=== PATIENT | female | born 1950 | race Caucasian/White ===

== ENCOUNTER 2016-10-15 17:53 | Emergency (ER) | payer OTHER ==
[2016-10-15 18:11] VITALS: TEMP 98.1
--- NOTE | 2016-10-15 19:55 | EDPHY ---
HPI/HX/ROS/PE/MDM Narrative: CHIEF COMPLAINT: Right lower extremity swelling HPI: The patient is a 66-year-old female with history of Parkinson's disease who presents with acute right lower extremity swelling. Patient states she falls often due to Parkinson's. Last night she fell on her kitchen floor. She went to see her PCP today who noticed increased swelling to her right lower extremity. Patient was sent here to rule out DVT. She denies chest pain or shortness of breath. No fever or chills. REVIEW OF SYSTEMS: Aside from elements discussed in the HPI, a comprehensive 10-point review of systems was reviewed and is negative. PMH: Parkinson's disease SOCIAL HISTORY: Here with long term care phlebotomist. PHYSICAL EXAM: General: Patient is alert, in no acute distress. ENT: Eyes are normal to inspection. ENT inspection normal. Neck: Normal inspection. Full range of motion. Respiratory: No respiratory distress. Breath sounds normal bilaterally. Cardiovascular: Regular rate and rhythm. Strong peripheral pulses. Abdomen: The abdomen is nontender to palpation. There are no peritoneal signs. There are normal bowel sounds. Back: Normal to inspection. No tenderness to palpation. Skin: Normal color. No rash. Warm and dry. Extremities: 1+ pitting edema on the left, 2+ pitting edema on the right. Full range of motion. Neuro: Oriented x3. Normal motor function. Normal sensory function. ED Course: Patient with Parkinson's and history of multiple falls presents with acute right lower extremity swelling. Patient has 2+ pitting edema on the right and 1 + pitting edema on the left. US is negative for DVT. MDM: This patient was sent to the ED to rule out a DVT. Thankfully the US is negative. There are no signs of cellulitis on exam. The etiology of her swelling is unclear but I think she is safe for outpatient workup. - Data Points Imaging Results: Imaging Impressions Extremity Venous Study 10/15/16 18:52 Impression: No deep venous thrombosis right leg. Findings and recommendations discussed with Emergency Department physician, Fidel Vasques MD at 19:36 hour, 10/15/2016. Final report concurs with initial preliminary interpretation. Imaging: Discussed imaging studies w/ orthopedically impaired teacher Radiologist General Time Seen by Provider: 10/15/16 18:52 Initial Vital Signs: Initial Vital Signs Temperature (C) 36.7 C 10/15/16 18:00 Heart Rate 68 10/15/16 18:00 Respiratory Rate 18 10/15/16 18:00 Blood Pressure 127/59 H 10/15/16 18:00 O2 Sat (%) 97 10/15/16 18:00 O2 Delivery Mode Room Air Allergies/Adverse Reactions: azithromycin Allergy (Verified 10/15/16 18:07) nitrofurantoin macrocrystalline [From Macrodantin] Allergy (Verified 10/15/16 18 :07) Sulfa (Sulfonamide Antibiotics) Allergy (Verified 10/15/16 18:07) Home Medications: Medication Instructions Recorded Azilect 07/15/15 Carbidopa-Levodopa 25-100 Tab 07/15/15 Citalopram 07/15/15 Levothyroxine 07/15/15 Departure - Departure Disposition: Home, Routine, Self-Care Clinical Impression: Right leg swelling Condition: Good Instructions: Leg Edema (ED) Additional Instructions: I recommend compression socks to help with the swelling. Followup with your primary care physician as needed. Return to the Emergency Department with increased swelling or pain to the leg or if you develop chest pain or shortness of breath. Referrals: Yodit Joyce MD [Primary Care Provider] - As per Instructions Report Scribed for: Fidel Vasques Report Scribed by: Christy Escoto Date of Report: 10/15/16 Time of Report: 19:55 Physician Review and Approval Statement: Portions of this note were transcribed by a medical radiation dosimetrist. I personally performed the history, physical exam, and medical decision-making; and confirmed the accuracy of the information in the transcribed note.
[2016-10-15 20:13] VITALS: BP 119/65; PULSE 67; RESP 16; O2SAT 96
== END 2016-10-15 20:13 | disposition home or self-care (01) ==
DX: M79.89 Other specified soft tissue disorders (principal); G20 Parkinson's disease

== ENCOUNTER 2016-11-01 20:03 | Emergency (ER) | payer OTHER ==
[2016-11-01 20:13] VITALS: TEMP 98.1
--- NOTE | 2016-11-01 20:50 | EDPHY ---
H & P Stated Complaint: pt pcp told pt she has elevated ddimer and to be evaled, swelling RLE Time Seen by Provider: 11/01/16 20:45 - Medical/Surgical History Hx Asthma: No Hx Chronic Respiratory Disease: No Hx Diabetes: No Hx Cardiac Disease: No Hx Renal Disease: No Hx Cirrhosis: No Hx Alcoholism: No Hx HIV/AIDS: No Hx Splenectomy or Spleen Trauma: No Other PMH: Parkinson's, hypothyroid - Social History Smoking Status: Never smoked Constitutional: Initial Vital Signs Temperature (C) 36.7 C 11/01/16 20:10 Heart Rate 71 11/01/16 20:10 Blood Pressure 131/62 H 11/01/16 20:10 O2 Sat (%) 95 11/01/16 20:10 O2 Delivery Mode Room Air Allergies/Adverse Reactions: azithromycin Allergy (Verified 11/01/16 20:14) erythromycin base Allergy (Verified 11/01/16 20:14) nitrofurantoin macrocrystalline [From Macrodantin] Allergy (Verified 11/01/16 20 :14) Sulfa (Sulfonamide Antibiotics) Allergy (Verified 11/01/16 20:14) Home Medications: Medication Instructions Recorded Carbidopa-Levodopa 25-100 Tab 07/15/15 Citalopram 07/15/15 Levothyroxine 07/15/15 FLUDROCORTISONE ACETATE 11/01/16 MIRTAZAPINE 11/01/16 Midodrine HCl 11/01/16 Medical Decision Making - Diagnostics Imaging Results: Imaging Impressions Extremity Venous Study 11/01/16 20:49 Impression: There is no sonographic evidence of deep or superficial vein thrombosis in the right lower extremity. Findings were discussed with Gamal Leigh MD at 21:30, on 11/01/2016. Imaging: Discussed imaging studies w/ physically impaired teacher Radiologist ED Course/Re-evaluation: CHIEF COMPLAINT: Right leg swelling HISTORY OF PRESENT ILLNESS: The patient is a 66 y/o female arriving at the referral of his PCP complaining of right lower leg swelling onset over the last few days. Her PCP ran a d-dimer that came back positive so she was referred here for an ultrasound. The patient denies any pain, shortness of breath, chest pain, or other complaints. She does note she falls frequently. REVIEW OF SYSTEMS: A 10 point review of systems was performed and is negative with the exception of the elements mentioned in the history of present illness. PHYSICAL EXAM: HR, BP, O2 Sat, RR. Temp noted General Appearance: Alert, well hydrated, appropriate, and non-toxic appearing. Head: Atraumatic without scalp tenderness or obvious injury Eyes: Pupils equal, round, reactive to light and accommodation, EOMI, no trauma , no injection. Nose: Atraumatic, no rhinorrhea, clear. Throat: Mucus membranes moist. Neck: Supple, non-tender, no lymphadenopathy. Respiratory: No retractions, no distress, no wheezes, and no accessory muscle use. Lungs are clear to auscultation bilaterally. Cardiovascular: Regular rate and rhythm, no murmurs, rubs, or gallops. Right dorsalis pedis pulse intact. Good capillary refill all extremities. Gastrointestinal: Abdomen is soft, non-tender, non-distended, no masses, no rebound, no guarding, no peritoneal signs. Musculoskeletal: Swelling and increased calf circumference in right lower leg. Normal active ROM of all extremities, atraumatic. Neurological: Alert, appropriate, and interactive. Nonfocal neuro exam. Skin: No rashes, good turgor, no nodules on palpation. PAST MEDICAL HISTORY: frequent falls, Parkinson's PAST SURGICAL HISTORY: Denies SOCIAL HISTORY: PCP: Dr. Joyce DIAGNOSTICS/PROCEDURES/CRITICAL CARE TIME: Right leg US: no DVT DIFFERENTIAL DIAGNOSIS: The differential diagnosis for the patient's leg swelling included but was not limited to hypoalbuminemia, congestive heart failure, cor pulmonale, venous stasis, trauma, and DVT. MEDICAL DECISION MAKING: This is a 66 y/o female who presents with a few-day history of right lower leg swelling. She had an elevated d-dimer recorded by her PCP today and was sent here for US. Her right calf circumference is increased relative to her left, but is non-tender. She has no other complaints and her exam is otherwise unremarkable. Reassessed patient and discussed imaging findings. US is negative for DVT. I've advised her to follow up with her PCP as needed for unimproved symptoms. Return precautions given. She is comfortable with this plan. Departure - Departure Disposition: Home, Routine, Self-Care Clinical Impression: Right leg swelling Condition: Good Instructions: Leg Edema (ED) Additional Instructions: Follow up with your primary care provider for unimproved symptoms over the next 2-3 days. Return to the ED for chest pain, shortness of breath, fever, or other worsening of condition. Referrals: Patient,NotPresent [Unknown] - As per Instructions Yodit Joyce MD [Primary Care Provider] - As per Instructions Report Scribed for: Gamal Leigh Report Scribed by: Zeny Cee Date of Report: 11/01/16 Time of Report: 20:51
[2016-11-01 21:43] VITALS: BP 124/61; PULSE 67; RESP 18; O2SAT 94
== END 2016-11-01 21:41 | disposition home or self-care (01) ==
LOC: EDUNIT#
DX: M79.89 Other specified soft tissue disorders (principal); G20 Parkinson's disease

== ENCOUNTER 2016-11-20 07:09 | Emergency (ER) | payer OTHER ==
--- NOTE | 2016-11-20 07:16 | EDPHY ---
H & P Stated Complaint: Mechanical Fall Time Seen by Provider: 11/20/16 07:10 HPI/ROS: CHIEF COMPLAINT: Fall HISTORY OF PRESENT ILLNESS: The patient is a 66-year-old female from but [facility] care home with Parkinson's who comes to the emergency department after she fell this morning. She has a small bruise to the right temporal region of her head. She denies headache or neck pain. She denies loss of consciousness. She does have a history of frequent falls. She also come pains of very slight right-sided rib pain with palpation. No difficulty breathing. No chest pain. No abdominal pain. She does not take blood thinners. No pain in her extremities. REVIEW OF SYSTEMS: Constitutional: denies: chills, fever, recent illness, recent injury EENTM: denies: blurred vision, double vision, nose congestion Respiratory: denies: cough, shortness of breath Cardiac: denies: chest pain, irregular heart rate, lightheadedness, palpitations Gastrointestinal/Abdominal: denies: abdominal pain, diarrhea, nausea, vomiting, blood streaked stools Genitourinary: denies: dysuria, frequency, hematuria, pain Musculoskeletal: denies: joint pain, muscle pain Skin: denies: lesions, rash, jaundice, bruising Neurological: See HPI Hematologic/Lymphatic: denies: blood clots, easy bleeding, easy bruising Immunologic/allergic: denies: HIV/AIDS, transplant EXAM: GENERAL: Well-appearing, well-nourished and in no acute distress. HEAD: Very slight bruising to left uatsdin region. No crepitus or deformity or swelling. normocephalic. EYES: Pupils equal round and reactive to light, extraocular movements intact, sclera anicteric, conjunctiva are normal. ENT: TMs normal, nares patent, oropharynx clear without exudates. Moist mucous membranes. NECK: Normal range of motion, supple without lymphadenopathy or JVD. LUNGS: Very slight pain with palpation to right lower ribcage anteriorly. No crepitus or deformity. Breath sounds clear to auscultation bilaterally and equal. No wheezes rales or rhonchi. HEART: Regular rate and rhythm without murmurs, rubs or gallops. ABDOMEN: Soft, nontender, normoactive bowel sounds. No guarding, no rebound. No masses appreciated. BACK: No CVA tenderness, no spinal tenderness, step-offs or deformities EXTREMITIES: Normal range of motion, no pitting or edema. No clubbing or cyanosis. NEUROLOGICAL: Cranial nerves II through XII grossly intact. Slightly slurred and quite speech at baseline. 5/5 strength, normal movement in all extremities , normal sensation PSYCH: Normal mood, normal affect. SKIN: Warm, dry, normal turgor, no visible rashes or lesions. Source: Patient Exam Limitations: No limitations - Medical/Surgical History Hx Asthma: No Hx Chronic Respiratory Disease: No Hx Diabetes: No Hx Cardiac Disease: No Hx Renal Disease: No Hx Cirrhosis: No Hx Alcoholism: No Hx HIV/AIDS: No Hx Splenectomy or Spleen Trauma: No Other PMH: Parkinson's, hypothyroid - Family History Significant Family History: No pertinent family hx - Social History Smoking Status: Never smoked Alcohol Use: Sober Drug Use: None Constitutional: Initial Vital Signs Temperature (C) 37.2 C 11/20/16 07:13 Heart Rate 72 11/20/16 07:13 Respiratory Rate 18 11/20/16 07:13 Blood Pressure 100/48 L 11/20/16 07:13 O2 Sat (%) 94 11/20/16 07:13 O2 Delivery Mode Room Air Allergies/Adverse Reactions: azithromycin Allergy (Verified 11/20/16 07:12) erythromycin base Allergy (Verified 11/20/16 07:12) nitrofurantoin macrocrystalline [From Macrodantin] Allergy (Verified 11/20/16 07 :12) Sulfa (Sulfonamide Antibiotics) Allergy (Verified 11/20/16 07:12) Home Medications: Medication Instructions Recorded Carbidopa-Levodopa 25-100 Tab 07/15/15 Citalopram 07/15/15 Levothyroxine 07/15/15 FLUDROCORTISONE ACETATE 11/01/16 MIRTAZAPINE 11/01/16 Midodrine HCl 11/01/16 Medical Decision Making - Diagnostics Imaging Results: Imaging Impressions Head CT 11/20/16 07:13 Impression: No acute posttraumatic abnormality identified. Results were communicated to IONA THAKUR, at 11/20/2016 8:02 General information for patients regarding this examination can be found at [email or web address]. If you have questions or comments about this report, please contact me at [phone] (hospital) or [phone] ([facility]). Ribs w/Chest X-Ray 11/20/16 07:13 Impression: Mildly displaced fracture of the right lateral 10th rib. Cortical regularity along the right lateral ninth rib may also represent a fracture. No pneumothorax. Imaging: Discussed imaging studies w/ dye range operator Radiologist ED Course/Re-evaluation: 8:15 a.m. we discussed the CT and x-ray results. The patient is reassured. She is writing on her phone. She declines further workup or testing at this time and is eager to go home. We discussed rib fractures and healing. Differential Diagnosis: Partial list of the Differential diagnosis considered include but were not limited to; contusion, fracture, Pneumothorax, head injury and although unlikely based on the history and physical exam, I also considered neck injury, infection, assault. I discussed these differential diagnoses and the plan with the patient as well as the usual and expected course. The patient understands that the diagnosis is provisional and that in medicine we are not always correct and that further workup is often warranted. Usual and customary warnings were given. All of the patient's questions were answered. The patient was instructed to return to the emergency department should the symptoms at all worsen or return, otherwise to followup with the physician as we discussed. Departure - Departure Disposition: Home, Routine, Self-Care Clinical Impression: Right rib fracture Qualifiers: Encounter type: initial encounter Rib fracture type: single rib Fracture type: closed Qualified Code(s): S22.31XA - Fracture of one rib, right side, initial encounter for closed fracture Contusion Qualifiers: Encounter type: initial encounter Contusion area: head Contusion of head detail : orbital tissues Laterality: right Qualified Code(s): S05.11XA - Contusion of eyeball and orbital tissues, right eye, initial encounter Condition: Fair Instructions: Rib Fracture (ED) Referrals: Yodit Joyce MD [Primary Care Provider] - As per Instructions
[2016-11-20 08:15] VITALS: RESP 16
[2016-11-20 09:09] VITALS: BP 104/82; PULSE 76; TEMP 96.8; O2SAT 95
== END 2016-11-20 09:09 | disposition home or self-care (01) ==
LOC: EDUNIT#
DX: S22.31XA Fracture of one rib, right side, initial encounter for closed fracture (principal); S05.11XA Contusion of eyeball and orbital tissues, right eye, initial encounter; G20 Parkinson's disease; W18.30XA Fall on same level, unspecified, initial encounter

== ENCOUNTER 2017-03-04 16:43 | Inpatient (IN) | payer OTHER ==
[2017-03-04] MEDS ORDERED: ACETAMINOPHEN 500 MG TAB PO ONE (16:55)
--- NOTE | 2017-03-04 16:57 | EDPHY ---
H & P Time Seen by Provider: 03/04/17 16:46 HPI/ROS: CHIEF COMPLAINT: Right hip injury HISTORY OF PRESENT ILLNESS: Patient arrives by EMS with her son. She has a history of multiple falls. She fell earlier today and hit her head on a piece of furniture. She was able to walk back to her room but then she could not get up because her right hip was hurting. Right lateral hip pain, worse with trying to move it or stand on it. Does not radiate. Not associated with weakness or numbness in the foot or knee or ankle symptoms. Started about an hour prior to arrival. REVIEW OF SYSTEMS: Eye: no change in vision ENT: no sore throat Cardiac: no chest pain or syncope Pulmonary: no cough or SOB Abdomen: no vomiting, diarrhea, abdominal pain Musculoskeletal: No neck or back pain. Skin: no rash Neuro: Mild headache where she hit her head Constitutional: no fever : no urinary symptoms A comprehensive 10 point review of systems is otherwise negative aside from elements mentioned in the history of present illness. PAST MEDICAL HISTORY: Includes thyroid and Parkinson's. Social history: Here with her son, lives at [facility] General Appearance: Alert and conversant, cooperative. Eyes: No scleral icterus. ENT, Mouth: Normal mucous membranes. Respiratory: Normal respiratory effort, breath sounds equal, lungs are clear to auscultation. Cardiovascular: Regular rate and rhythm. Gastrointestinal: Abdomen is soft and non tender. Neurological: Alert and oriented x3. Normally conversant. Face symmetric, can move both feet and has normal sensation in both feet. Skin: Abrasion on the right flank. Musculoskeletal: Does have some lateral tenderness over her greater trochanter but no hip pain with rotation or axial loading. No distal femur knee catheterization ankle or foot tenderness. Normal motor sensory and dorsalis pedis in the right foot. No cervical thoracic or lumbar spine tenderness. No upper extremity or left lower extremity tenderness or decrease in range of motion of joints. Patient does not have knee tenderness on the right side. Full range of motion of both knees. Psychiatric: Not agitated. Emergency Department course/MDM: Head CT scanning for head trauma in a 58-year-old woman, x-rays to include right hip and femur. 1741: X-rays right hip and femur interpreted personally is negative. 1818: Negative CT head and cervical spine per Dr. Rios. Results discussed with the son, patient can't walk or stand, needs to be admitted to the hospital. 2040: X-ray report reviewed, in the ED clinical exam does not fit with patellar fracture, will be followed clinically the hospital by hospitalist. Smoking Status: Never smoked Constitutional: Initial Vital Signs Temperature (C) 37.1 C 03/04/17 16:49 Heart Rate 88 03/04/17 16:49 Respiratory Rate 18 03/04/17 16:49 Blood Pressure 168/77 H 03/04/17 16:49 O2 Sat (%) 94 03/04/17 16:49 O2 Delivery Mode Room Air Allergies/Adverse Reactions: azithromycin Allergy (Verified 11/20/16 07:12) entacapone Allergy (Verified 03/04/17 16:53) erythromycin base Allergy (Verified 11/20/16 07:12) nitrofurantoin macrocrystalline [From Macrodantin] Allergy (Verified 11/20/16 07 :12) Sulfa (Sulfonamide Antibiotics) Allergy (Verified 11/20/16 07:12) Home Medications: Medication Instructions Recorded Aspirin EC [Aspirin EC 81 mg (*)] 81 mg PO DAILY 03/04/17 Carbidopa/Levodopa [Rytary ER 1 cap PO Q4H 03/04/17 48.75 mg-195 mg Cap] Citalopram [CeleXA] 20 mg PO DAILY 03/04/17 FLUDROCORTISONE ACETATE 0.1 mg PO BID@08,14 03/04/17 Herbals/Supplements -Info Only 1 ea PO DAILY 03/04/17 Levothyroxine [Synthroid 75 mcg 75 mcg PO DAILY06 03/04/17 (*)] Mirtazapine [Mirtazapine] 15 mg PO HS 03/04/17 Sennosides/Docusate Sodium 1 each PO BID 03/04/17 [Senna-Docusate Sodium Tablet] Medical Decision Making - Diagnostics Imaging Results: Imaging Impressions Cervical Spine CT 03/04/17 16:54 Impression: Normal. CT Scan of Cervical Spine (Without Contrast) Clinical Indications: Pain after trauma. Technique: Multidetector helical CT of the cervical spine was performed using dose reduction technology. Axial, sagittal, and coronal images were reviewed. Findings: No fractures are found. No dislocation. Intervertebral disks are degenerated at multiple levels, worst at C5-C6, where severe bulging disk and osteophytes cause stenosis of the spinal canal. Facet joints are degenerated at multiple levels. Impression: 1. Degenerative spinal stenosis at C5-C6. 2. No acute traumatic sequelae. I telephoned results to Dr. Mian Sinha at [address] 03/04/17 16:54 Impression: Normal. CT Scan of Cervical Spine (Without Contrast) Clinical Indications: Pain after trauma. Technique: Multidetector helical CT of the cervical spine was performed using dose reduction technology. Axial, sagittal, and coronal images were reviewed. Findings: No fractures are found. No dislocation. Intervertebral disks are degenerated at multiple levels, worst at C5-C6, where severe bulging disk and osteophytes cause stenosis of the spinal canal. Facet joints are degenerated at multiple levels. Impression: 1. Degenerative spinal stenosis at C5-C6. 2. No acute traumatic sequelae. I telephoned results to Dr. Mian Sinha at 1812 hours. Hip X-Ray 03/04/17 16:54 Impression: 1. Query small right hip joint effusion. 2. 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 3. Significant L4-L5 degenerative lumbar disk disease. Femur X-Ray 03/04/17 16:55 Impression: 1. Probable nondisplaced patellar fracture. 2. Moderate degenerative change in the knee with a joint effusion. Differential Diagnosis: Differential considered including but not limited to pelvic fracture, hip dislocation, hip fracture, femoral shaft fracture. Consult/Admit Bed Type: [place] [id number] sent text re; knee xray at 4 - Data Points Medications Given: Discontinued Medications Acetaminophen (Tylenol) 1,000 mg PO EDNOW ONE Stop: 03/04/17 16:56 Last Admin: 03/04/17 16:58 Dose: 1,000 mg Departure - Departure Disposition: [facility] Inpatient Acute Clinical Impression: Contusion of right hip Qualifiers: Encounter type: initial encounter Qualified Code(s): S70.01XA - Contusion of right hip, initial encounter Condition: Good
[2017-03-04] MEDS ORDERED: ACETAMINOPHEN 500 MG TAB ONE (16:59)
[2017-03-04] MEDS ORDERED: ONDANSETRON DISINTEGRATING 4 MG TAB PO PRN (21:07)
[2017-03-04] MEDS ORDERED: oxyCODONE IR 5 MG TAB PO PRN (21:07)
[2017-03-04] MEDS: ACETAMINOPHEN 500 MG TAB PO SCH (21:41)
[2017-03-04] MEDS: SENNOSIDES/DOCUSATE SODIUM TAB PO SCH (21:42)
[2017-03-04] MEDS: MIRTAZAPINE 15 MG TAB PO SCH (21:42)
--- NOTE | 2017-03-04 22:32 | GHP ---
[f rep st] HISTORY AND PHYSICAL DATE OF ADMISSION: 03/04/2017 CHIEF COMPLAINT: Multiple falls. HISTORY OF PRESENT ILLNESS: This is a 66-year-old female with a history of Parkinson's as well as mu lti-system atrophy, who has multiple falls. She is brought in today by her son after she fell and la nded on her right hip. Her hip has been quite painful since. She has been able to bear weight on it . She has some right knee swelling, which has been there chronic and unchanged. She does not have a ny significant pain in the right knee. Her son is involved, and was with her in the emergency depart ment, though he was not with her when I saw her. She has had multiple, almost countless falls recent ly. PAST MEDICAL/PAST SURGICAL HISTORY: 1. Parkinson's. 2. Multi-system atrophy. 3. Thyroid disease. MEDICATIONS: Please see medication reconciliation. SOCIAL HISTORY: She lives at [place]. Her son is involved in her care. FAMILY HISTORY: Reviewed and noncontributory. REVIEW OF SYSTEMS: 10-point review of systems is conducted, and is negative except per HPI. PHYSICAL EXAMINATION: VITAL SIGNS: Blood pressure 120/64, heart rate 63, respiration rate 16, satur ating 96% on room air. Temperature is 36.5. GENERAL: Ms. Gray is a very pleasant, elderly female who is resting in bed. Appears comfortable, in no acute distress. HEENT: Shows to be normocephali c, atraumatic. CARDIOVASCULAR: Exam shows a regular rate and rhythm. No murmurs, rubs, or gallops. PULMONARY: Lungs clear to auscultation bilaterally. ABDOMEN: Soft, nontender, nondistended. EXT REMITIES: Her right hip is mobile with mild tenderness to palpation over the right greater trochante r. Her right knee has an effusion. She is able to move this. SKIN: No rash. : No Bauman. NEUR OLOGIC: Exam shows her to be alert and oriented x3. She is moving all extremities. She has a nonfo noah neurologic exam. PSYCHIATRIC: Exam shows a normal mood and affect. LABS: Her recent labs are reviewed from October. She had a hemoglobin of 10.9. Her basic metabolic pa paty is normal. She did not have labs drawn in the emergency department. DATA: 1. I discussed this with Dr. Mckee. Recommends 3-view knee x-rays. 2. Femur x-ray shows questionable patellar fracture. Shows moderate degenerative disease. Hip x-ra y shows no fracture. 3. Head CT is normal. 4. CT scan of the C-spine shows degenerative changes. IMPRESSION AND PLAN: A 66-year-old female with Parkinson's and multiple falls. 1. Multiple falls: I think that these are due to Parkinson's and multi-system atrophy. There is co ncern that her current level of care is not sufficient; I briefly discussed this with her. We will h ave Physical Therapy and Occupational Therapy work with her. Case Management will need to be involve d. 2. Question of right patellar fracture: Does not really fit with her clinical picture. She does gilman ve an effusion. I spoke with Dr. Mckee, who recommends a formal 3-view x-ray of her knee. If she is ambulating without worsening pain, he thinks that a brace may be placed for comfort only, though take care with this, given her history of multiple falls. He will not formally consult at this point. I f there is any concern on the 3 view of her knee, he can be reached for further input as needed. 3. Parkinson's/multi-system atrophy: Will continue her Sinemet. 4. Hypothyroid: Continue her Synthroid. 5. Code status is do not resuscitate. 6. Venous thromboembolism risk is high. Given her immobility, I will give her Lovenox. /[id number]/MODL
[2017-03-05] MEDS: LEVOTHYROXINE 75 MCG TAB PO SCH (05:39)
[2017-03-05 05:55] LABS: % IMMATURE GRANULYOCYTES 0.2 % (0.0-1.1); ABSOLUTE IMMATURE GRANULOCYTES 0.01 10^3/uL (0.00-0.10); ADD DIFF? NO; ADD MORPH? NO; ADD SCAN? NO; ATYPICAL LYMPHOCYTE FLAG 0 (0-99); FRAGMENT RBC FLAG 0 (0-99); HEMATOCRIT 34.4 % (38.0-47.0); HEMOGLOBIN 12.3 g/dL (12.6-16.3); LEFT SHIFT FLG 0 (0-99); LIPEMIA HEMOLYSIS FLAG 90 (0-99); MEAN CELL HEMOGLOBIN 33.2 pg (27.9-34.1); MEAN CELL HEMOGLOBIN CONCENTR. 35.8 g/dL (32.4-36.7); MEAN CELL VOLUME 92.7 fL (81.5-99.8); MEAN PLATELET VOLUME 9.8 fL (8.7-11.7); PLATELET CLUMPS FLAG 0 (0-99); PLATELET COUNT 162 10^3/uL (150-400); RED BLOOD CELL COUNT 3.71 10^6/uL (4.18-5.33); RED CELL DISTRIBUTION WIDTH 13.7 % (11.5-15.2)
[2017-03-05 06:12] LABS: ANION GAP 10 mEq/L (8-16); CALCIUM 9.2 mg/dL (8.5-10.4); CARBON DIOXIDE 31 mEq/l (22-31); CHLORIDE 104 mEq/L (97-110); CREATININE 0.6 mg/dL (0.6-1.0); GLOMERULAR FILTRATION RATE > 60; GLUCOSE 86 mg/dL (70-100); POTASSIUM 3.3 mEq/L (3.5-5.2); SODIUM 145 mEq/L (134-144)
[2017-03-05] MEDS: SENNOSIDES/DOCUSATE SODIUM TAB PO SCH ×2 (09:10→22:19)
[2017-03-05] MEDS: ENOXAPARIN 40 MG/0.4 ML SYR SC SCH (09:10)
[2017-03-05] MEDS: ACETAMINOPHEN 500 MG TAB PO SCH ×3 (09:10→22:19)
[2017-03-05] MEDS: FLUDROCORTISONE ACETATE 0.1 MG TAB PO SCH ×2 (09:10→14:28)
[2017-03-05] MEDS: ASPIRIN EC 81 MG TAB PO SCH (09:10)
[2017-03-05] MEDS: CITALOPRAM 20 MG TAB PO SCH (09:11)
--- NOTE | 2017-03-05 12:16 | PDMN ---
Medical Necessity Medical necessity: est los>2mn for multiple falls r/t Parkinson's and multi- system atrophy, R hip pain, r/o R patellar fx, concern re: living situation is appropriate level of care; requires PT/OT, eval for need for R knee brace, safe dispo at d/c; per order and H&P 03/04/17
--- NOTE | 2017-03-05 12:50 | HOSPPROG ---
Hospitalist Progress Note Assessment/Plan: Patient is a 66-year-old female with a history of Parkinson's as well as multi- system atrophy. She has a history of multiple falls. She was brought in by her son after she fell landed on her right hip. She has been unable to bear weight on it. Today is my 1st encounter with the patient. Chart reviewed. * frequent falling with underlying Parkinson's and multi-system atrophy -there is concern she does not have enough care. -physical therapy and occupational therapy seeing her, recommending home care -she very much wants to return home * right knee effusion with severe patella femoral arthritis -the x-ray does not confirm a right patellar fracture * Parkinson's -Sinemet * hypothyroidism -Synthroid *hypokalemia -add K protocol *Hypernatremia -mild *Plan: will see how she is doing tomorrow; if continues to be able to ambulate at her baseline, will dc her back to her [place]. Subjective: Tayler has no c/o pain. Would very much like to return to her home. Objective: Vital Signs Temp Pulse Resp BP Pulse Ox 37.1 C 59 L 16 105/51 L 95 03/05/17 07:28 03/05/17 11:35 03/05/17 11:35 03/05/17 11:35 03/05/17 11:35 Laboratory Results 03/05/17 05:11 03/05/17 05:11 03/04/17 03/05/17 03/06/17 05:59 05:59 05:59 Intake Total 200 Balance 200 - Physical Exam Constitutional: not in pain, chronically ill appearing Eyes: PERRL Ears, Nose, Mouth, Throat: hearing normal Cardiovascular: regular rate and rhythym Respiratory: no respiratory distress Gastrointestinal: normoactive bowel sounds Skin: warm Musculoskeletal: generalized weakness Neurologic: AAOx3 Psychiatric: interacting appropriately ICD10 Worksheet Patient Problems: Problems Problem Status Onset Contusion of right hip Acute
[2017-03-05] MEDS ORDERED: PROTOCOL POTASSIUM 1 DOSE MISC PRN (14:28)
--- NOTE | 2017-03-05 15:29 | ASMTCMCOM ---
CM Note CM Note Notes: Pt with Parkinsons had fall at [place], falls regularly. PT/OT rec H[facility], pt agreeable and wants to return home. Pt [facility] with [facility] in [facility] past, she [facility] and they accept for OT/PT. Pt currently open with [facility] delac[facility], has PCP Dr. Joyce and neurology at [facility]. Pt likely d/c tomorrow. CM to follow. Date Signed: 03/05/2017 03:29 PM Electronically Signed By:RYAN Whitney
[2017-03-05 18:49] LABS: POTASSIUM 3.3 mEq/L (3.5-5.2)
[2017-03-05] MEDS ORDERED: POTASSIUM CL 10 MEQ TAB PO ONE (21:18)
[2017-03-05] MEDS: MIRTAZAPINE 15 MG TAB PO SCH (22:19)
[2017-03-06 03:37] VITALS: TEMP 97.7
[2017-03-06 06:21] LABS: ANION GAP 10 mEq/L (8-16); CALCIUM 9.4 mg/dL (8.5-10.4); CARBON DIOXIDE 30 mEq/l (22-31); CHLORIDE 107 mEq/L (97-110); CREATININE 0.7 mg/dL (0.6-1.0); GLOMERULAR FILTRATION RATE > 60; GLUCOSE 88 mg/dL (70-100); POTASSIUM 3.5 mEq/L (3.5-5.2); SODIUM 147 mEq/L (134-144)
[2017-03-06] MEDS: LEVOTHYROXINE 75 MCG TAB PO SCH ×2 (06:43→09:20)
[2017-03-06] MEDS ORDERED: POTASSIUM CL 10 MEQ TAB PO ONE (06:44)
[2017-03-06 07:45] VITALS: BP 139/71; PULSE 67; RESP 14; O2SAT 93
[2017-03-06] MEDS ORDERED: POTASSIUM CL 10 MEQ TAB ONE (09:34)
[2017-03-06] MEDS: ACETAMINOPHEN 500 MG TAB PO SCH (10:29)
[2017-03-06] MEDS: CITALOPRAM 20 MG TAB PO SCH (10:29)
[2017-03-06] MEDS: ASPIRIN EC 81 MG TAB PO SCH (10:29)
[2017-03-06] MEDS: FLUDROCORTISONE ACETATE 0.1 MG TAB PO SCH (10:30)
[2017-03-06] MEDS: SENNOSIDES/DOCUSATE SODIUM TAB PO SCH (11:42)
[2017-03-06] MEDS: ENOXAPARIN 40 MG/0.4 ML SYR SC SCH (11:42)
[2017-03-06] MEDS ORDERED: MIDODRINE HCL 5 MG TAB PO PRN (11:46)
--- NOTE | 2017-03-06 11:50 | HOSPPROG ---
Hospitalist Progress Note Assessment/Plan: Patient is a 66-year-old female with a history of Parkinson's as well as multi- system atrophy. She has a history of multiple falls. She was brought in by her son after she fell landed on her right hip. She has been unable to bear weight on it. * frequent falling with underlying Parkinson's and multi-system atrophy -there is concern she does not have enough care. -physical therapy and occupational therapy seeing her, recommending home care -she very much wants to return home -will dc home w home care * right knee effusion with severe patella femoral arthritis -the x-ray does not confirm a right patellar fracture * Parkinson's -Sinemet * hypothyroidism -Synthroid *hypokalemia -add K protocol *Hypernatremia -mild *Plan: dc back to [place] w ongoing home care, patient ambulated well in the room with her walker Subjective: aTyler has no pain, very much wants to be discharged back to her assisted living. Objective: Vital Signs Temp Pulse Resp BP Pulse Ox 36.5 C 67 14 139/71 H 93 03/06/17 07:41 03/06/17 07:41 03/06/17 07:41 03/06/17 07:41 03/06/17 07:41 Laboratory Results 03/05/17 05:11 03/06/17 05:19 03/05/17 03/06/17 03/07/17 05:59 05:59 05:59 Intake Total 200 Balance 200 - Physical Exam Constitutional: not in pain, chronically ill appearing Eyes: PERRL, anicteric sclera Ears, Nose, Mouth, Throat: hearing normal Cardiovascular: regular rate and rhythym Respiratory: no respiratory distress Skin: warm, No normal color (pale) Musculoskeletal: generalized weakness (but does well w walker) Neurologic: AAOx3 Psychiatric: interacting appropriately, not anxious, not encephalopathic ICD10 Worksheet Patient Problems: Problems Problem Status Onset Contusion of right hip Acute
--- NOTE | 2017-03-06 11:56 | PDIAF ---
- Diagnosis Diagnosis: weakness, Parkinson's, multi system atrophy Code Status: Do Not Resuscitate - Medication Management Discharge Medications: Medications to Continue on Transfer Aspirin EC [Aspirin EC 81 mg (*)] 81 mg PO DAILY 03/04/17 [Last Taken 03/04/17] Carbidopa/Levodopa [Rytary ER 48.75 mg-195 mg Cap] 4 cap PO 08,12 03/04/17 [ Last Taken 03/04/17] Citalopram [CeleXA 20 MG] 20 mg PO DAILY 03/04/17 [Last Taken 03/04/17] FLUDROCORTISONE ACETATE 0.1 mg PO BID@08,14 03/04/17 [Last Taken 03/04/17] Herbals/Supplements -Info Only 1 ea PO DAILY 03/04/17 [Last Taken 03/04/17] Levothyroxine [Synthroid 75 mcg (*)] 75 mcg PO DAILY06 03/04/17 [Last Taken ] Mirtazapine 15 mg PO HS 03/04/17 [Last Taken 03/04/17] Sennosides/Docusate Sodium [Senna-Docusate Sodium Tablet] 1 each PO BID [Last Taken 03/04/17] Acetaminophen [Tylenol ES 500 mg (*)] 1,000 mg PO TID tab 03/06/17 [Last Taken Unknown] Carbidopa/Levodopa [Rytary ER 48.75 mg-195 mg Cap] 3 each PO 16,20 03/06/17 [ Last Taken Unknown] Midodrine HCl 5 mg PO QID PRN 03/06/17 [Last Taken 03/04/17] Discharge Medications: Refer to the Discharge Home Medication list for PRN reason. - Orders Services needed: Home Care, Physical Therapy, Occupational Therapy Home Care Face to Face: I certify that this patient was under my care and that I had the required [id number] encounter meeting the encounter requirements on the discharge day. My findings support the fact that the patient is homebound as defined in Home Care Face to Face Continued: CMS Chapter 7 Medicare Benefits Manual 30.1.1 , The condition of the patient is such that there exists a normal inability to leave home and consequently, leaving home would require a considerable and taxing effort. Diet Recommendation: no restrictions on diet Diet Texture: Regular Texture Diet - Follow Up Care Current Providers and Referrals: Patient,NotPresent [Unknown] - As per Instructions
--- NOTE | 2017-03-06 13:43 | ASMTCMCOM ---
CM Note CM Note Notes: Pt medically stable for d/c back to [place] with [facility] PT/OT. Date Signed: 03/06/2017 01:42 PM Electronically Signed By:RYAN Whitney
--- NOTE | 2017-03-06 13:48 | ASDISCHSUM ---
Discharge Information Plan Status:Home with Home Health Medically Cleared to Leave: Discharge Date:03/06/2017 01:30 PM CM D/C Disposition:Home Health Service ADT D/C Disposition:[id number] Projected Discharge Date:03/06/2017 11:00 AM Transportation at D/C: Discharge Delay Reason: Follow-Up Date:03/06/2017 11:00 AM Discharge Slot: Final Diagnosis: Placement Information Referral Type:*Home Health Care Services Referral ID:[id number] Provider Name:[facility]) Address 1:[address] [place] [address] Address 2: City:[place] Selection Factors: State:[place] Patient Contact Information Contact Name:YISSELMaximino Relationship:Son Address: Work Phone: City: [facility] Phone: [facility] Code: Email: Financial Information Financial Class: Primary Plan Desc:MEDICARE INPATIENT Primary Plan Number:[id number] Secondary Plan Desc:[facility] Secondary Plan Number:[id number] Assessment Information [facility] CM Progress Note CM Note CM Note Notes: Pt with Parkinsons had fall at [place], falls regularly. PT/OT rec HH, pt agreeable and wants to return home. Pt received services with [facility] in the past, she requests [facility] again and they accept for OT/PT. Pt currently open with [facility] delacruz, has PCP Dr. Joyce and neurology at [facility]. Pt likely d/c tomorrow. CM to follow. Date Signed: 03/05/2017 03:29 PM Electronically Signed By:RYAN Whitney [facility] CM Progress Note CM Note CM Note Notes: Pt medically stable for d/c back to [place] with [facility] PT/OT. Date Signed: 03/06/2017 01:42 PM Electronically Signed By:RYAN Whitney Intervention Information
--- NOTE | 2017-03-06 14:15 | GDS ---
[f rep st] DISCHARGE SUMMARY DISCHARGE DIAGNOSES: 1. Frequent falling with underlying Parkinson's and multi-system atrophy. 2. Right knee effusion with severe patellofemoral arthritis. 3. Parkinson. 4. Hypothyroidism. 5. Hypokalemia. 6. Hypernatremia. HISTORY OF PRESENT ILLNESS: Briefly, the patient is a very sweet 66-year-old female with a history of Parkinson's, as well as multi-system atrophy. She has a history of multiple falls. She was brought in by her son after she landed on her right hip. She had difficulty with bearing weight. Subsequently, she came to the hospital for further evaluation. On admission, she had a cervical spine CT performed which showed degenerative spinal stenosis at C5-C6. She has no acute traumatic sequelae. Head CT is normal. Femur x-ray showed a probable nondisplaced patellar fracture. She had a moderate degenerative change of the knee with a joint effusion. Because of the femur x-ray, the recommendation from Orthopedics was to get a knee x-ray that was 3-view. This showed a positive joint effusion. This showed severe patellofemoral osteoarthritis, worse in the lateral patellar femoral compartment. She had no definite fracture. She worked with Physical Therapy and Occupational Therapy. She is ambulating well. She was able to get out of bed and ambulate to the bathroom with a walker without difficulty. The patient is requesting to return to assisted living with home care. HOSPITAL COURSE: 1. Frequent falling with underlying Parkinson's and multi-system atrophy. We will resume her home care. The patient very much wants to return to her assisted living. Does not want a intermediate facility. 2. Right knee effusion with severe patellofemoral arthritis. Her pain is well managed with scheduled Tylenol. Will continue this. 3. Parkinson's. Sinemet. 4. Hypothyroidism, on Synthroid. 5. Hypokalemia, on potassium protocol. 6. Hypernatremia, mild. Suspect this was from dehydration. DISCHARGE CONDITION: Stable. Blood pressure is 139/71, heart rate is 67, respiratory rate is 14, O2 sats on room air 93%, temperature 36.5 Celsius. MEDICATIONS AT DISCHARGE: Please see the EMR. DISCHARGE INSTRUCTIONS: 1. Continue home care. 2. If she develops fever, chills, chest pain, or shortness of breath, return to the ER. Greater than 30 minutes discharging and coordinating the patient's care. /[id number]/MODL MTDD
[2017-03-06] MEDS ORDERED: LEVODOPA PO SCH (16:00)
[2017-03-06] MEDS ORDERED: CARBIDOPA PO SCH (16:00)
[2017-03-07] MEDS ORDERED: Herbals/Supplements -Info Only PO SCH (09:00)
== END 2017-03-06 13:30 | disposition home health service (06) | DRG 57 ==
LOC: EDUNIT# → F3N 20:30
PROVIDERS: ADMIT Student in an Organized Health Care Education/Training Program; ATTEND Internal Medicine
DX: G20 Parkinson's disease (principal); M17.11 Unilateral primary osteoarthritis, right knee; S70.01XA Contusion of right hip, initial encounter; W19.XXXA Unspecified fall, initial encounter; Y92.098 Other place in other non-institutional residence as the place of occurrence of the external cause; E03.9 Hypothyroidism, unspecified; E87.6 Hypokalemia; E87.0 Hyperosmolality and hypernatremia; Z91.81 History of falling; Z66 Do not resuscitate
CPT/HCPCS: 97116-GP; 97161-GP; 97166-GO; 97530-GP; G8978-GP-CJ; G8979-GP-CI; G8980-GP-CI; G8987-GO-CI; G8988-GO-CI; J1650

== ENCOUNTER → 2017-05-22 | Outpatient (CLI) | payer OTHER | PROVIDERS: ATTEND Family Medicine | DX: R13.12 Dysphagia, oropharyngeal phase (principal); G20 Parkinson's disease | CPT/HCPCS: 74230; 92611; G8996; G8997; G8998 ==

== ENCOUNTER 2017-08-09 16:39 | Inpatient (IN) | payer OTHER ==
[2017-08-09] MEDS ORDERED: IBUPROFEN SUSP 100 MG/5 ML UDCUP PO ONE (17:10)
[2017-08-09] MEDS ORDERED: NS 1,000 ML IV ONE (17:10)
--- NOTE | 2017-08-09 17:14 | EDPHY ---
H & P Stated Complaint: weak, ST, not feeling well, poor appetite, not speaking Time Seen by Provider: 08/09/17 16:50 HPI/ROS: CHIEF COMPLAINT: Fever, cough HISTORY OF PRESENT ILLNESS: 67-year-old female with advanced Parkinson's disease and multi system atrophy presents with fever and cough. Onset of sore throat, cough and fever yesterday, associated with generalized weakness. She usually uses a walker to ambulate, but is too weak to use her walker today. Decreased oral intake today. She drank a little juice, but did not eat today. No shortness of breath or chest discomfort. No prior history of pneumonia. REVIEW OF SYSTEMS: complete 10 point ROS negative except at noted in the HPI - Medical/Surgical History Hx Asthma: No Hx Chronic Respiratory Disease: No Hx Diabetes: No Hx Cardiac Disease: No Hx Renal Disease: No Hx Cirrhosis: No Hx Alcoholism: No Hx HIV/AIDS: No Hx Splenectomy or Spleen Trauma: No Other PMH: Parkinson's, hypothyroid, MSA (multiple system atrophy) - Social History Smoking Status: Never smoked - Physical Exam Exam: General Appearance: Alert, pleasant, answers yes/no questions, tries to answer other questions, but difficult to understand Eyes: Pupils equal and round, no conjunctival pallor or injection ENT, Mouth: Mucous membranes dry Neck: Normal inspection Respiratory: Lungs are clear to auscultation Cardiovascular: Regular rate and rhythm Gastrointestinal: Abdomen is soft and nontender Neurological: Alert, diffuse weakness Skin: Warm and dry Extremities: Normal inspection Psychiatric: Mood and affect normal Constitutional: Initial Vital Signs Temperature (C) 38.4 C H 08/09/17 16:44 Heart Rate 88 08/09/17 16:44 Blood Pressure 123/55 H 08/09/17 16:44 O2 Sat (%) 85 L 08/09/17 16:44 O2 Delivery Mode Nasal Cannula O2 (L/minute) 3 Allergies/Adverse Reactions: azithromycin Allergy (Verified 08/09/17 16:43) entacapone Allergy (Verified 08/09/17 16:43) erythromycin base Allergy (Verified 08/09/17 16:43) nitrofurantoin macrocrystalline [From Macrodantin] Allergy (Verified 08/09/17 16 :43) Sulfa (Sulfonamide Antibiotics) Allergy (Verified 08/09/17 16:43) Home Medications: Medication Instructions Recorded Aspirin EC [Aspirin EC 81 mg (*)] 81 mg PO DAILY 03/04/17 Carbidopa/Levodopa [Rytary ER 4 cap PO 08,12 03/04/17 48.75 mg-195 mg Cap] Citalopram [CeleXA 20 MG] 20 mg PO DAILY 03/04/17 FLUDROCORTISONE ACETATE 0.1 mg PO BID@08,14 03/04/17 Herbals/Supplements -Info Only 1 ea PO DAILY 03/04/17 Levothyroxine [Synthroid 75 mcg 75 mcg PO DAILY06 03/04/17 (*)] Mirtazapine 15 mg PO HS 03/04/17 Sennosides/Docusate Sodium 1 each PO BID 03/04/17 [Senna-Docusate Sodium Tablet] Acetaminophen [Tylenol ES 500 mg 1,000 mg PO TID tab 03/06/17 (*)] Carbidopa/Levodopa [Rytary ER 3 each PO 16,20 03/06/17 48.75 mg-195 mg Cap] Midodrine HCl 5 mg PO QID PRN 03/06/17 Medical Decision Making - Diagnostics Imaging Results: Imaging Impressions Chest X-Ray 08/09/17 16:56 Impression: 1. Bilateral patchy alveolar infiltrates suggestive of pneumonia. CHF is felt to be possible but less likely. ED Course/Re-evaluation: This patient presents with fever cough and hypoxia, concerning for pneumonia. Oxygen saturation 95% on 2 L of oxygen by nasal cannula. Ibuprofen 600 mg orally given. IV normal saline 1 L given for dehydration. Does not meet SIRS criteria. Chest x-ray reveals a left lower lobe infiltrate as well as patchy bilateral infiltrates. Blood cultures drawn and Levaquin and cefepime IV given. The hospitalist service was consulted for admission. Differential Diagnosis: Differential diagnosis includes pyelonephritis, cholecystitis, influenza, cellulitis, pneumonia, abscess, meningitis. - Data Points Laboratory Results: Laboratory Results 08/09/17 17:05 08/09/17 17:08/09/17 08/09/17 08/09/17 17:05 17:05 17:05 WBC 10.26 10^3/uL H 10^3/uL (3.80-9.50) RBC 3.58 10^6/uL L 10^6/uL (4.18-5.33) Hgb 12.0 g/dL L g/dL (12.6-16.3) Hct 34.1 % L % (38.0-47.0) MCV 95.3 fL fL (81.5-99.8) MCH 33.5 pg pg (27.9-34.1) MCHC 35.2 g/dL g/dL (32.4-36.7) RDW 12.8 % % (11.5-15.2) Plt Count 155 10^3/uL 10^3/uL (150-400) MPV 10.1 fL fL (8.7-11.7) Neut % (Auto) Not Reported Lymph % (Auto) Not Reported [place] % (Auto) Not Reported Eos % (Auto) Not Reported Baso % (Auto) Not Reported Nucleat RBC Rel Count Not Reported Absolute Neuts (auto) Not Reported Absolute Lymphs (auto) Not Reported Absolute Monos (auto) Not Reported Absolute Eos (auto) Not Reported Absolute Basos (auto) Not Reported Absolute Nucleated RBC Not Reported Immature Gran % Not Reported Seg Neutrophils % 96.0 % % Band Neutrophils % 0 % % Lymphocytes % 0 % % Monocytes % 4.0 % % Eosinophils % 0 % % Basophils % 0 % % Metamyelocytes % 0 % % Myelocytes % 0 % % Promyelocytes % 0 % % Blast Cells % 0 % % Immature Gran # Not Reported Absolute Seg Neuts 9.85 10^/uL H 10^/uL (1.70-6.50) Absolute Band Neuts 0.00 10^3/uL 10^3/uL (0.00-0.70) Absolute Lymphocytes 0.00 10^3/uL L 10^3/uL (1.00-3.00) Absolute Monocytes 0.41 10^3/uL 10^3/uL (0.30-0.80) Absolute Eosinophils 0.00 10^3/uL L 10^3/uL (0.03-0.40) Absolute Basophils 0.00 10^3/uL L 10^3/uL (0.02-0.10) Absolute Metamyelocyte 0.00 10^3/mL 10^3/mL (0.00-0.00) Absolute Myelocytes 0.00 10^3/mL 10^3/mL (0.00-0.00) Absolute Promyelocytes 0.00 10^3/uL 10^3/uL (0.00-0.00) Absolute Plasma Cells 0.00 10^3/uL 10^3/uL (0.00-0.00) RBC/WBC/PLT Morphology NORMAL (NORMAL) Absolute Blast Cells 0.00 10^3/uL 10^3/uL (0.00-0.00) Plasma Cells % 0 % % Platelet Estimate ADEQUATE (ADEQ) VBG Lactic Acid 0.8 mmol/L mmol/L (0.7-2.1) Sodium 140 mEq/L mEq/L (135-145) Potassium 3.8 mEq/L mEq/L (3.5-5.2) Chloride 102 mEq/L mEq/L (97-110) Carbon Dioxide 28 mEq/l mEq/l (22-31) Anion Gap 10 mEq/L mEq/L (8-16) BUN 18 mg/dL mg/dL (7-23) Creatinine 0.7 mg/dL mg/dL (0.6-1.0) Estimated GFR > 60 Glucose 110 mg/dL H mg/dL (70-100) Calcium 8.8 mg/dL mg/dL (8.5-10.4) Microbiology Results: MICROBIOLOGY 08/09/17 17:05 Nasal, Sinus - Swab Respiratory Panel (PCR) - Final Human Metapneumovirus Detected Medications Given: Discontinued Medications Sodium Chloride (Ns) 1,000 mls @ 0 mls/hr IV ONCE ONE; Wide Open PRN Reason: Protocol Stop: 08/09/17 17:11 Last Admin: 08/09/17 17:19 Dose: 1,000 mls Cefepime HCl 1 gm/ Sterile (Water) 11.3 mls @ 135.6 mls/hr IV EDNOW ONE PRN Reason: Protocol Stop: 08/09/17 17:58 Last Admin: 08/09/17 19:42 Dose: 11.3 mls Levofloxacin/Dextrose (Levaquin 750 Mg (Premix)) 150 mls @ 100 mls/hr IV EDNOW ONE PRN Reason: Protocol Stop: 08/09/17 19:23 Last Admin: 08/09/17 18:06 Dose: 150 mls Ibuprofen (Motrin Oral Solution) 600 mg PO EDNOW ONE Stop: 08/09/17 17:11 Last Admin: 08/09/17 17:20 Dose: 600 mg Departure - Departure Disposition: [facility] Inpatient Acute Clinical Impression: Pneumonia Qualifiers: Pneumonia type: due to unspecified organism Laterality: bilateral Lung location : unspecified part of lung Qualified Code(s): J18.9 - Pneumonia, unspecified organism Condition: Fair
[2017-08-09 17:21] LABS: PLATELET COUNT 155 10^3/uL (150-400)
[2017-08-09] MEDS ORDERED: CEFEPIME HCL 1 GM in STERILE WATER INJ 11.3 ML IV ONE (17:54)
[2017-08-09] MEDS ORDERED: ONDANSETRON DISINTEGRATING 4 MG TAB PO PRN (18:46)
[2017-08-09] MEDS ORDERED: ONDANSETRON 4 MG/2 ML VIAL IVP PRN (18:46)
[2017-08-09] MEDS ORDERED: ACETAMINOPHEN 325 MG TAB PO PRN (18:46)
--- NOTE | 2017-08-09 19:36 | GHP ---
[f rep st] HISTORY AND PHYSICAL DATE OF ADMISSION: 08/09/2017 HISTORY OF PRESENT ILLNESS: The patient is a pleasant, 67-year-old female with a history of Parkinson's and multi-system atrophy, who presents with fever and lethargy. She had a sore throat, cough, and fever yesterday and today she had generalized weakness. She was too weak to walk using a wheelchair. She had decreased oral intake. She gets ongoing speech therapy, and she had a recent video swallow in May of this year showing silent aspiration with thin liquids. When I speak with her, she is able to speak. She is alert, but her speech is weak and short, and she does not have normal speech at baseline. She notes that she feels weak and acknowledges coughing with eating. She has had poor p.o. intake. REVIEW OF SYSTEMS: Complete 10-point review of systems conducted and negative except as noted in the HPI. PAST MEDICAL HISTORY: 1. Parkinsonism. 2. Multisystem atrophy. 3. Thyroid disease. 4. Autonomic dysfunction. SOCIAL HISTORY: She lives in [place]. No tobacco. No alcohol. Originally from [place]. ALLERGIES: Entacapone, azithromycin, erythromycin, nitrofurantoin, and sulfa. MEDICATIONS: Aspirin, carbidopa/levodopa, citalopram, fludrocortisone acetate 0.1 mg oral, levothyroxine, midodrine, mirtazapine, senna docusate. PHYSICAL EXAMINATION: VITAL SIGNS: Temperature 38.4, blood pressure 123/55; pulse 88, now 77; breathing 85% on room air, now 98% on 3 L. GENERAL: Thin, alert. HEENT: Sclerae are anicteric. Oropharynx is clear. Mucous membranes are dry. NECK: Supple without lymphadenopathy or JVD. LUNGS: Show diffuse crackles throughout bilaterally, more predominant in the lower lobe. HEART: S1 , S2. Not tachycardic. ABDOMEN: Soft, nontender, nondistended. LOWER EXTREMITIES: Without no edema. Calves are nontender. SKIN: Without rash. NEUROLOGIC: Nonfocal. It is noted for the patient slow to respond and rigid movements, but otherwise nonfocal. IMAGING STUDIES: Chest x-ray interpreted by co shows multifocal infiltrates that are bilateral. LABORATORY DATA: White count is 10, which is elevated for her. Hematocrit 34, which is baseline. Platelets are 155. Venous lactate is 0.8. Sodium 140, potassium 3.8, chloride 102, BUN 18, creatinine 0.7, glucose 110. BUN is a little bit higher than normal. I have discussed the case with Dr. Kamala Lui. ASSESSMENT AND PLAN: This is a 67-year-old female with multi-system atrophy, here with pneumonia. 1. Pneumonia. This is likely aspiration pneumonia, given her known dysphagia. She is also at risk for nosocomial organisms, given her recent hospitalization within 6 months, as well as living in an assisted living facility. We will start her on cefepime and Flagyl. I think we can forego atypical coverage. We will have Speech Therapy see her. 2. Known aspiration. For now make her n.p.o. except for medications and have Speech Therapy see her. 3. Sepsis. The patient screens positive for sepsis with leukocytosis, fever, source of infection. She has a normal lactate, which she has received in an intravenous fluid bolus in the emergency department. I will continue maintenance intravenous fluids. She is not hypotensive. 4. Multi-system atrophy. Physical Therapy, Occupational Therapy, Speech Pathology, and continue her Florinef and midodrine. 5. Parkinson's. Continue her carbidopa/levodopa. 6. Prophylaxis. Low molecular heparin indicated. 7. Code. I discussed the case with her son. It sounds like she may be a do not resuscitate, but he was unsure, and he is not the power of bottom worker, so for now she will be full code, but this is worth following up on the 5th. DISPOSITION: Inpatient status. /[id number]/MODL MTDD
--- NOTE | 2017-08-09 20:01 | PDMN ---
Medical Necessity Medical necessity: C/M review: est. > 2 MN LOS for eval and TX of acute pneumonia, likely aspiration pneumonia, sepsis, known aspiration, requiring ongoing NPO except for meds, IV Cefepime, IV Flagyl, IV fluids, pulse oximetry, supplemental o2, acute inpt PT/OT/ST, comorbid known dysphagia, multi-system atrophy, parkibnson's disease,history of thyroid disease and autonomic dysfunction per H/P.
[2017-08-09] MEDS: NS 1,000 ML IV SCH (21:29)
[2017-08-10] MEDS: CEFEPIME HCL 1 GM in STERILE WATER INJ 11.3 ML IV SCH ×3 (02:20→18:19)
[2017-08-10 05:52] LABS: PLATELET COUNT 136 10^3/uL (150-400)
[2017-08-10] MEDS: ENOXAPARIN 40 MG/0.4 ML SYR SC SCH (09:42)
--- NOTE | 2017-08-10 12:03 | ASMTCMCOM ---
CM Note CM Note Notes: Pt admitted with pneumonia, likely aspiration. Pt has a hx of parkinsons, dysphagia, multisystem atrophy & falls. Normally resides at [facility]. Called [facility] ([phone]); confirmed pt is an assisted living resident. Pt has had [facility] the past & is current with [facility]. Pt's sons Ray ([phone]) & Franklyn ([phone]) live locally. PT ordered; awaiting eval. OT/ST recommending SNF. CM will follow. Date Signed: 08/10/2017 12:02 PM Electronically Signed By:Dahiana Lezama RN
--- NOTE | 2017-08-10 12:29 | HOSPPROG ---
Hospitalist Progress Note Assessment/Plan: 67-year-old female history of Parkinson's and severe atrophy presents with complaints of weakness and fever. 1st encounter, chart reviewed. # bilateral pneumonia -likely secondary to aspiration -high risk for nosocomial organisms -continue cefepime and Flagyl # dysphagia -acute on chronic -speech therapy eval today -patient will likely benefit from tube feeding -reviewed with Dr. Salgado of Gastroenterology -will consider Dobhoff in the acute infectious setting -will likely need a PEG tube long-term # human metapneumovirus -precautions -continue supportive care # sepsis -resolved # Parkinson's is multi system atrophy -continue therapies -patient very deconditioned -dietary and calorie count # disposition -unclear at this time -continue in-hospital supportive care -consider tube feeding Subjective: Feels very tired and weak. Not hungry. No pain. Objective: Vital Signs Temp Pulse Resp BP Pulse Ox 37.1 C 89 20 142/71 H 95 08/10/17 11:44 08/10/17 11:44 08/10/17 11:44 08/10/17 11:44 08/10/17 11:44 Laboratory Results 08/10/17 04:35 08/10/17 04:23 08/09/17 08/10/17 08/11/17 05:59 05:59 05:59 Intake Total 1200 0 Balance 1200 0 - Physical Exam Constitutional: chronically ill appearing, uncomfortable, cachectic Eyes: PERRL, anicteric sclera, EOMI Ears, Nose, Mouth, Throat: moist mucous membranes, hearing normal, ears appear normal Cardiovascular: No JVD, No tachycardia, No edema Respiratory: no respiratory distress, reduced air movement, rhonchi Gastrointestinal: No tenderness, No ascites, No distension Skin: warm, normal color, No mottled Musculoskeletal: normal joint ROM, pain with ROM, generalized weakness Neurologic: AAOx3 Psychiatric: not anxious, not encephalopathic, poor judgement, poor memory ICD10 Worksheet Patient Problems: Problems Problem Status Onset Contusion of right hip Acute Pneumonia Acute
[2017-08-10] MEDS: NS 1,000 ML IV SCH (12:57)
[2017-08-10] MEDS ORDERED: KETOCONAZOLE 2% 120 ML SHAMPOO TP PRN (18:07)
[2017-08-10] MEDS ORDERED: CARBIDOPA PO SCH (20:00)
[2017-08-10] MEDS ORDERED: LEVODOPA PO SCH (20:00)
[2017-08-10] MEDS ORDERED: NON-FORMULARY NEW DRUG (Mirtazapine [Mirtazapine] 15 MG) PO SCH (21:00)
[2017-08-10] MEDS ORDERED: MIRTAZAPINE 15 MG TAB PO SCH (21:00)
[2017-08-10] MEDS: CARBIDOPA/LEVODOPA 25 MG/100 MG TAB PO SCH (21:40)
[2017-08-10] MEDS: MIDODRINE HCL 5 MG TAB PO SCH (21:41)
[2017-08-11] MEDS: CEFEPIME HCL 1 GM in STERILE WATER INJ 11.3 ML IV SCH ×3 (02:16→17:52)
[2017-08-11] MEDS ORDERED: LEVOTHYROXINE 88 MCG TAB PO SCH (06:00)
[2017-08-11] MEDS: NS 1,000 ML IV SCH (06:07)
[2017-08-11] MEDS ORDERED: CARBIDOPA PO SCH (08:00)
[2017-08-11] MEDS ORDERED: LEVODOPA PO SCH (08:00)
[2017-08-11] MEDS: CARBIDOPA/LEVODOPA 25 MG/100 MG TAB PO SCH ×3 (08:04→17:56)
[2017-08-11] MEDS: CITALOPRAM 20 MG TAB PO SCH ×2 (08:04→17:45)
[2017-08-11] MEDS: MIDODRINE HCL 5 MG TAB PO SCH (08:05)
[2017-08-11] MEDS: ENOXAPARIN 40 MG/0.4 ML SYR SC SCH (08:14)
[2017-08-11] MEDS ORDERED: SENNOSIDES/DOCUSATE SODIUM TAB PO SCH (09:00)
[2017-08-11] MEDS ORDERED: Herbals/Supplements -Info Only PO SCH (09:00)
[2017-08-11] MEDS ORDERED: ASPIRIN EC 81 MG TAB PO SCH (09:00)
[2017-08-11] MEDS ORDERED: PANTOPRAZOLE SODIUM 40 MG TAB PO SCH (09:00)
--- NOTE | 2017-08-11 14:36 | HOSPPROG ---
Hospitalist Progress Note Assessment/Plan: 67-year-old female history of Parkinson's and severe atrophy presents with complaints of weakness and fever. # bilateral pneumonia -likely secondary to aspiration -high risk for nosocomial organisms -continue cefepime and Flagyl # dysphagia -NPO -Dobhoff to be placed -acute on chronic -speech therapy eval -reviewed with Dr. Salgado of Gastroenterology -will likely need a PEG tube long-term # human metapneumovirus -precautions -continue supportive care # sepsis -resolved # Parkinson's is multi system atrophy -continue therapies -patient very deconditioned -dietary and calorie count # disposition -unclear at this time -continue in-hospital supportive care -palliative meeting needed -D/W CM Subjective: Slept well last evening. Up in chair. No pain. Objective: Vital Signs Temp Pulse Resp BP Pulse Ox 36.8 C 70 97 H 152/72 H 1 L 08/11/17 12:42 08/11/17 12:42 08/11/17 12:42 08/11/17 12:42 08/11/17 12:42 Laboratory Results 08/10/17 04:35 08/10/17 04:23 08/10/17 08/11/17 08/12/17 05:59 05:59 05:59 Intake Total 1200 1020 Balance 1200 1020 - Physical Exam Constitutional: not in pain, chronically ill appearing, cachectic Eyes: PERRL, anicteric sclera, EOMI Ears, Nose, Mouth, Throat: moist mucous membranes, hearing normal, ears appear normal Cardiovascular: No JVD, No tachycardia, No edema Respiratory: no respiratory distress, no rales or rhonchi, clear to auscultation Gastrointestinal: normoactive bowel sounds, No tenderness, No ascites Skin: warm, normal color, No mottled Musculoskeletal: normal joint ROM, no joint effusions, generalized weakness Neurologic: AAOx3 Psychiatric: not anxious, not encephalopathic, thought process linear ICD10 Worksheet Patient Problems: Problems Problem Status Onset Contusion of right hip Acute Pneumonia Acute
[2017-08-11] MEDS ORDERED: FLUDROCORTISONE ACETATE 0.1 MG TAB PO SCH ×2 (16:00→18:07)
--- NOTE | 2017-08-11 17:09 | ASMTCMCOM ---
CM Note CM Note Notes: CM spoke with hospitalist and RN Lefty, Wes placed today, will monitor while treating pneumonia Patient is unable to speak and swallow. Plan tomorrow to discuss patient status with son, Lefty informed son Franklyn there will likely be a big conversation to have around core status, PEG tube and feeding, and Palliative vs. Hospice and reports one of pt's sons will come tomorrow (Franklyn or Ray). Discharge TBD. CM to follow. Current D/C plan: TBD. Date Signed: 08/11/2017 05:08 PM Electronically Signed By:Stephanie Colin
[2017-08-11] MEDS: FLUDROCORTISONE ACETATE 0.1 MG TAB TUBE SCH (17:51)
[2017-08-11] MEDS: ACETAMINOPHEN 325 MG TAB TUBE PRN (17:51)
[2017-08-11] MEDS: CITALOPRAM 20 MG TAB TUBE SCH (17:52)
[2017-08-11] MEDS: LANSOPRAZOLE SUSP 30MG/10ML UDSYR (Adult) TUBE SCH (17:53)
[2017-08-11] MEDS: CARBIDOPA/LEVODOPA 25 MG/100 MG TAB TUBE SCH (21:14)
[2017-08-11] MEDS: MIRTAZAPINE 15 MG TAB TUBE SCH (21:15)
[2017-08-11] MEDS: MIDODRINE HCL 5 MG TAB TUBE SCH (21:15)
[2017-08-11] MEDS: SENNOSIDES 17.6 MG/10 ML UDL - IF LIQUID ORDERED TUBE SCH (21:15)
[2017-08-12] MEDS: CEFEPIME HCL 1 GM in STERILE WATER INJ 11.3 ML IV SCH ×3 (01:48→18:30)
[2017-08-12] MEDS: LEVOTHYROXINE 88 MCG TAB TUBE SCH (05:33)
[2017-08-12] MEDS: ACETAMINOPHEN 325 MG TAB TUBE PRN ×2 (05:33→21:27)
[2017-08-12] MEDS: ASPIRIN 81 MG CHEWABLE TAB TUBE SCH (08:39)
[2017-08-12] MEDS: CARBIDOPA/LEVODOPA 25 MG/100 MG TAB TUBE SCH ×4 (08:39→21:13)
[2017-08-12] MEDS: LANSOPRAZOLE SUSP 30MG/10ML UDSYR (Adult) TUBE SCH (08:40)
[2017-08-12] MEDS: MIDODRINE HCL 5 MG TAB TUBE SCH ×2 (08:40→21:13)
[2017-08-12] MEDS: SENNOSIDES 17.6 MG/10 ML UDL - IF LIQUID ORDERED TUBE SCH ×2 (08:40→21:14)
[2017-08-12] MEDS: CITALOPRAM 20 MG TAB TUBE SCH (08:40)
[2017-08-12] MEDS: FLUDROCORTISONE ACETATE 0.1 MG TAB TUBE SCH ×2 (08:40→12:11)
--- NOTE | 2017-08-12 08:51 | HOSPPROG ---
Hospitalist Progress Note Assessment/Plan: 67-year-old female history of Parkinson's(she has underlying Multiple systems atrophy) who presented with complaints of weakness and fever. # bilateral pneumonia -likely secondary to aspiration -high risk for nosocomial organisms -continue cefepime and Flagyl # dysphagia (likely caused by progression of MSA) -NPO -Dobhoff placed -acute on chronic -speech therapy evaluation recommended a dysphagia 2 diet -will likely need a PEG tube long-term -reviewed this with her son, he wants to think about it and further discuss w his mom # human metapneumovirus -precautions -continue supportive care # sepsis -resolved # Parkinson's is multi system atrophy -continue therapies -patient very deconditioned -dietary and calorie count # disposition -unclear at this time -continue in-hospital supportive care -palliative meeting needed (I explained to her son that Tayler is likely to get recurrent pna due to aspiration-he wants to talk w his twin brother about a peg tube) Also, reviewed her [facility] status with them. Her son is somewhat sure she is a DNR but will look at her Living Will and get back to the nursing staff. Subjective: Tayler has no c/o pain, has difficulty w talking due to weakness Objective: Vital Signs Temp Pulse Resp BP Pulse Ox 37.1 C 73 20 134/66 H 94 08/12/17 04:00 08/12/17 04:00 08/12/17 04:00 08/12/17 04:00 08/12/17 04:00 Laboratory Results 08/10/17 04:35 08/10/17 04:23 08/11/17 08/12/17 08/13/17 05:59 05:59 05:59 Intake Total 1020 900 Balance 1020 900 - Physical Exam Constitutional: chronically ill appearing, other (thin) Eyes: PERRL Ears, Nose, Mouth, Throat: hearing normal Cardiovascular: regular rate and rhythym Respiratory: no respiratory distress Gastrointestinal: normoactive bowel sounds Skin: warm, No normal color (pale) Musculoskeletal: generalized weakness Neurologic: other (alert but very weak and has trouble w using her voice) Psychiatric: interacting appropriately ICD10 Worksheet Patient Problems: Problems Problem Status Onset Pneumonia Acute Contusion of right hip Acute
[2017-08-12] MEDS: ENOXAPARIN 40 MG/0.4 ML SYR SC SCH (08:59)
[2017-08-12] MEDS: NS 1,000 ML IV SCH (12:12)
--- NOTE | 2017-08-12 16:09 | ASMTCMCOM ---
CM Note CM Note Notes: Left a message for evans Gonzalez regarding patient and the need to meet to determine core status and future planning for palliative vs hospice. CM will follow. Date Signed: 08/12/2017 04:08 PM Electronically Signed By:Shalonda Merchant LCSW
[2017-08-12] MEDS: MIRTAZAPINE 15 MG TAB TUBE SCH (21:13)
[2017-08-13] MEDS: CEFEPIME HCL 1 GM in STERILE WATER INJ 11.3 ML IV SCH ×3 (01:11→18:20)
[2017-08-13] MEDS: LEVOTHYROXINE 88 MCG TAB TUBE SCH (05:06)
[2017-08-13 07:01] LABS: PLATELET COUNT 210 10^3/uL (150-400)
[2017-08-13] MEDS ORDERED: PROTOCOL POTASSIUM 1 DOSE MISC PRN (07:47)
[2017-08-13] MEDS ORDERED: POTASSIUM CL 10 MEQ TAB PO ONE (07:57)
[2017-08-13] MEDS ORDERED: POTASSIUM CL 20 MEQ/15 ML UDCUP TUBE ONE ×2 (08:15→22:15)
[2017-08-13] MEDS: ACETAMINOPHEN 325 MG TAB TUBE PRN (08:21)
[2017-08-13] MEDS: ASPIRIN 81 MG CHEWABLE TAB TUBE SCH (08:23)
[2017-08-13] MEDS: FLUDROCORTISONE ACETATE 0.1 MG TAB TUBE SCH ×2 (08:23→12:39)
[2017-08-13] MEDS: CARBIDOPA/LEVODOPA 25 MG/100 MG TAB TUBE SCH ×4 (08:23→21:24)
[2017-08-13] MEDS: MIDODRINE HCL 5 MG TAB TUBE SCH ×2 (08:24→21:25)
[2017-08-13] MEDS: CITALOPRAM 20 MG TAB TUBE SCH (08:24)
[2017-08-13] MEDS: SENNOSIDES 17.6 MG/10 ML UDL - IF LIQUID ORDERED TUBE SCH ×2 (08:24→21:24)
[2017-08-13] MEDS: LANSOPRAZOLE SUSP 30MG/10ML UDSYR (Adult) TUBE SCH (08:25)
[2017-08-13] MEDS: ENOXAPARIN 40 MG/0.4 ML SYR SC SCH (08:25)
--- NOTE | 2017-08-13 09:57 | HOSPPROG ---
Hospitalist Progress Note Assessment/Plan: 67-year-old female history of Parkinson's(she has underlying Multiple systems atrophy) who presented with complaints of weakness and fever. # bilateral pneumonia -likely secondary to aspiration -high risk for nosocomial organisms -continue cefepime and Flagyl #acute hypoxemic respiratory failure -due to the above # dysphagia (likely caused by progression of MSA) -NPO -Dobhoff placed -acute on chronic -speech therapy evaluation recommended a dysphagia 2 diet -will likely need a PEG tube long-term if patient and family want this #Underweight w a BMI of 18.6 # human metapneumovirus -precautions -continue supportive care # sepsis -resolved # Parkinson's is multi system atrophy -continue therapies -patient very deconditioned -dietary and calorie count # disposition -unclear at this time -continue in-hospital supportive care -Palliative care ordered -spoke with Dr Tang to ask him his opinion for superintendent [employer] outcomes. Patient would need a peg tube for nutrition, reviewed her [facility] form which notes she is a DNR, ok for temporary tube feeding but nothing permanent. I 've spoken with the Palliative Care team / they are arranging a meeting with the patient's sons about plan of care and goals for Tayler's life. It's a difficult situation because Tayler is weak and difficult to even understand her. Subjective: Tayler says she isn't having pain. Wants to write out her concerns but is too weak. Objective: Vital Signs Temp Pulse Resp BP Pulse Ox 37.7 C 85 18 137/69 H 92 08/13/17 07:41 08/13/17 07:41 08/13/17 07:41 08/13/17 07:41 08/13/17 07:41 Laboratory Results 08/13/17 04:35 08/13/17 04:35 08/12/17 08/13/17 08/14/17 05:59 05:59 05:59 Intake Total 900 2515 Balance 900 2515 - Physical Exam Constitutional: chronically ill appearing, cachectic Eyes: PERRL Ears, Nose, Mouth, Throat: hearing normal Cardiovascular: regular rate and rhythym Respiratory: no respiratory distress, reduced air movement Skin: warm Musculoskeletal: generalized weakness Neurologic: other (alert) Psychiatric: interacting appropriately ICD10 Worksheet Patient Problems: Problems Problem Status Onset Pneumonia Acute Contusion of right hip Acute
--- NOTE | 2017-08-13 15:57 | GCON ---
[f rep st] CONSULTATION DATE OF CONSULTATION: 08/13/2017 REFERRING PHYSICIAN: Denisse Harris, ERICA The patient is a 67-year-old woman who has multiple system atrophy and is followed by Dr. Kiara quintana as an outpatient for neurologic care. I have not been involved in her care before. The reason I a m being consulted is to add my input regarding her prognosis with this condition and the fact that cande lópez is having some aspiration, currently has a feeding tube, and is faced with the question of putting in a PEG tube for nutrition for the long or short term, given her trouble with swallowing and concern about recurrent aspirations and risks for that. She is able to communicate with me generally effect ively. She came to the hospital because of fever, lethargy, and sore throat and has an upper respira tory infection with a viral syndrome. She became quite weak and was using a wheelchair. Oral intake had decreased. She was having silent aspiration when she had a swallowing study in May. There has been awareness of some coughing when she is eating, as outlined in the history and physical . Currently, she is denying any pain. PAST MEDICAL HISTORY: Notable for this diagnosis in the last 2 years. She has a history of thyroid disease as well. MEDICATIONS: Aspirin, Sinemet, Celexa, Florinef, Lovenox, Synthroid, midodrine, and Remeron. ALLERGIES: Entacapone, azithromycin, erythromycin, nitrofurantoin, and sulfa. REVIEW OF SYSTEMS: She is alert, but has severe dysarthria and must speak repeatedly for me to be ab le to understand her, but that is something I can eventually do most of the time. She understands th at we are facing a question of long-term care and safety for her. She has generalized bradykinesia, but is not having any tremor now. There is some mild generalized w eakness without focal weakness, but strength is in the 3 to 4/5 range, particularly in the proximal m uscles. She has evidence of aspiration pneumonia from her chest x-ray and she met criteria for sepsis when cande lópez came in. PHYSICAL EXAM: VITAL SIGNS: Blood pressure is 105/55 and sometimes in the 120 to 130 range systolic , pulse is 68, respirations 16, and temperature is 36.9. GENERAL: She is a frail elderly woman, but in no acute distress. She has a nasogastric tube in place. She is alert and maintains attention fa irly well. It is hard to assess her general fund of knowledge with the very prominent dysarthria, bu t she is generally oriented. She understands her general situation. She is aware of the swallowing problem and the challenges that is causing for her. We talked openly about the prognosis of a condit ion such as hers and she understands that there is a relatively relentless progression, which will li cameron eventually lead to her from complications of the illness. However, she says she is not re sujey to simply go to hospice and forego nutrition. Therefore, she feels comfortable proceeding with a PEG tube with the knowledge that this may or may not preclude development of further complications, such as recurrent pneumonia. IMPRESSION: The total unit time was 50 minutes, with greater than 50% of the time in counseling and coordination of care. As noted above, she has a progressive neurologic syndrome of multiple system a trophy and is experiencing recurrent risk of aspiration, either silently or overtly, and has develope d pneumonia with sepsis syndrome, but has stabilized. In light of her competency to make decisions, I think she certainly may proceed with a PEG tube with the knowledge that this can sustain quality of life for an indeterminate amount of time and provide adequate nutrition in a convenient fashion. I conveyed this information to her son through a phone call and left a voicemail for him to call me if he had any questions. I also let Denisse Harris know the patient's wishes and they will move forwar d appropriately. Please contact me with any questions. Copy requested to: Kiara Montanez MD Neurology /[id number]/MODL
[2017-08-13] MEDS: MIRTAZAPINE 15 MG TAB TUBE SCH (21:25)
[2017-08-13] MEDS: ACETAMINOPHEN 650 MG/20.3 ML UDCUP TUBE PRN (23:44)
[2017-08-14] MEDS: CEFEPIME HCL 1 GM in STERILE WATER INJ 11.3 ML IV SCH ×3 (03:02→17:34)
[2017-08-14] MEDS: ACETAMINOPHEN 650 MG/20.3 ML UDCUP TUBE PRN (05:39)
[2017-08-14] MEDS: LEVOTHYROXINE 88 MCG TAB TUBE SCH (05:40)
[2017-08-14] MEDS: ENOXAPARIN 40 MG/0.4 ML SYR SC SCH (07:58)
[2017-08-14] MEDS: SENNOSIDES 17.6 MG/10 ML UDL - IF LIQUID ORDERED TUBE SCH ×2 (07:58→20:13)
[2017-08-14] MEDS: LANSOPRAZOLE SUSP 30MG/10ML UDSYR (Adult) TUBE SCH (07:58)
[2017-08-14] MEDS: MIDODRINE HCL 5 MG TAB TUBE SCH ×2 (07:59→20:13)
[2017-08-14] MEDS: FLUDROCORTISONE ACETATE 0.1 MG TAB TUBE SCH ×2 (07:59→15:15)
[2017-08-14] MEDS: ASPIRIN 81 MG CHEWABLE TAB TUBE SCH (07:59)
[2017-08-14] MEDS: CITALOPRAM 20 MG TAB TUBE SCH (07:59)
[2017-08-14] MEDS: CARBIDOPA/LEVODOPA 25 MG/100 MG TAB TUBE SCH ×4 (08:00→20:13)
--- NOTE | 2017-08-14 09:18 | HOSPPROG ---
Hospitalist Progress Note Assessment/Plan: 67-year-old female history of Parkinson's(she has underlying Multiple systems atrophy) who presented with complaints of weakness and fever. # bilateral pneumonia -likely secondary to aspiration -high risk for nosocomial organisms -continue cefepime and Flagyl #acute hypoxemic respiratory failure -due to the above -much improved # dysphagia (likely caused by progression of MSA) -NPO -Dobhoff placed, to be removed this morning for video eval -reviewed care w ST, will get a video today and if she fails, will need a peg #Underweight w a BMI of 18.6 # human metapneumovirus -precautions -continue supportive care # sepsis -resolved # Parkinson's is multi system atrophy -continue therapies -patient very deconditioned -dietary and calorie count # disposition -unclear at this time -continue in-hospital supportive care -Palliative care ordered -if fails swallow evaluation; patient has indicated to me and Dr Tang she wants a peg. Will await input from video of her swallowing. Subjective: Tayler is much more interactive today, not c/o pain. Objective: Vital Signs Temp Pulse Resp BP Pulse Ox 37.3 C 79 18 134/69 H 94 08/14/17 07:45 08/14/17 07:45 08/14/17 07:45 08/14/17 07:45 08/14/17 07:45 Laboratory Results 08/13/17 04:35 08/14/17 04:50 08/13/17 08/14/17 08/15/17 05:59 05:59 05:59 Intake Total 2515 1808 Output Total 3 Balance 2515 1805 - Physical Exam Constitutional: chronically ill appearing, cachectic Eyes: PERRL Ears, Nose, Mouth, Throat: hearing normal Cardiovascular: regular rate and rhythym Respiratory: no respiratory distress, reduced air movement Skin: warm Musculoskeletal: generalized weakness Neurologic: AAOx3 Psychiatric: interacting appropriately ICD10 Worksheet Patient Problems: Problems Problem Status Onset Pneumonia Acute Contusion of right hip Acute
[2017-08-14] MEDS ORDERED: POTASSIUM CL 10 MEQ TAB PO ONE (10:30)
--- NOTE | 2017-08-14 15:37 | ASMTCMCOM ---
CM Note CM Note Notes: Today SWer retrieved voicemail message from Pt's son Cj Newell calling back about a care conference/palliative consult for Pt. Let Olman De La O in Palliative know. Olman left a msg for Cj today. Viri Vickers RN from [facility] came to speak w/ SWer about Pt's case. Viri states that Pt's PCP is Dr. Yodit Joyce. Pt's Parkinson's neurologist is Dr. Shazia Montanez at [facility] . Also, per Viri Pt. is open with [facility] care at her home at [facility]. As was previously mentioned by colleagues, Pt. was also open with [facility] in the past. Olman De La O is managing getting an appointment with sons to discuss next medical course for Pt. To discuss with Pt. and family whether Pt. would choose a PEG and medical intervention or a more palliative/hospice approach. Viri Vickers RN suggests going very slowly when ascertaining Pt's current wishes to ensure Pt. can communicate effectively. Team needs to clarify Pt's most recent MOST. Viri Vickers looking to find MDPOA form in Pt's outpatient record. SW to follow. Date Signed: 08/14/2017 03:36 PM Electronically Signed By:Veronique Tavera LCSW
[2017-08-14] MEDS: MIRTAZAPINE 15 MG TAB TUBE SCH (20:13)
[2017-08-15] MEDS: CEFEPIME HCL 1 GM in STERILE WATER INJ 11.3 ML IV SCH ×3 (01:08→17:07)
[2017-08-15] MEDS: LEVOTHYROXINE 88 MCG TAB TUBE SCH (05:44)
[2017-08-15] MEDS: FLUDROCORTISONE ACETATE 0.1 MG TAB TUBE SCH ×3 (07:47→14:02)
[2017-08-15] MEDS: CARBIDOPA/LEVODOPA 25 MG/100 MG TAB TUBE SCH ×5 (07:58→19:32)
[2017-08-15] MEDS: ASPIRIN 81 MG CHEWABLE TAB TUBE SCH ×2 (07:59→09:29)
[2017-08-15] MEDS: MIDODRINE HCL 5 MG TAB TUBE SCH ×3 (07:59→21:23)
[2017-08-15] MEDS: ENOXAPARIN 40 MG/0.4 ML SYR SC SCH (07:59)
[2017-08-15] MEDS: SENNOSIDES 17.6 MG/10 ML UDL - IF LIQUID ORDERED TUBE SCH ×4 (08:00→21:23)
[2017-08-15] MEDS: LANSOPRAZOLE SUSP 30MG/10ML UDSYR (Adult) TUBE SCH ×3 (08:00→09:30)
[2017-08-15] MEDS: CITALOPRAM 20 MG TAB TUBE SCH (09:30)
[2017-08-15] MEDS: POTASSIUM Cl (KCl) 100 ML IV SCH ×4 (09:32→15:00)
--- NOTE | 2017-08-15 13:43 | GCON ---
[f rep st] CONSULTATION CHIEF COMPLAINT: Dysphagia with aspiration pneumonia. HISTORY OF PRESENT ILLNESS: I have been asked to see this very pleasant 67-year-old woman in consult ation by Denisse Harris for symptoms of aspiration pneumonia, requiring long-term enteral feeding. The patient is followed by Dr. Kiara Montanez for outpatient neurology. She has a history of Parkinson disease and has had progressive symptoms with increasing difficulties with activities of daily livin g and difficulty with eating. She has had episodes of aspiration with pneumonia. She was admitted t o the hospital. Aspiration pneumonia with fever and lethargy, as well as sore throat. She had decre ased oral intake. She is having silent aspiration. She did undergo evaluation by Speech Pathology a nd is at risk for aspiration. Asked to see patient for further management and discussion regarding P EG tube placement. PAST MEDICAL HISTORY: Remarkable for Parkinson disease, history of thyroid disease, multi-system atr ophy, autonomic dysfunction. MEDICATIONS: Aspirin, Sinemet, Celexa, Florinef, Lovenox, Synthroid, Midrin, and Remeron. Medications in the hospital: Acetaminophen, aspirin, Sinemet, cefepime 1 g q.8, Celexa, Lovenox, Dontae rinef, ketoconazole, lansoprazole 30 mg daily, Synthroid, Flagyl, midodrine, Remeron, Zofran, senna. ALLERGIES: Entacapone, azithromycin, erythromycin, nitrofurantoin, and sulfa. FAMILY HISTORY: Noncontributory to chief complaint. SOCIAL HISTORY: Negative. No significant alcohol use or tobacco use. REVIEW OF SYSTEMS: Negative 10 systems, other than mentioned in the HPI. PHYSICAL EXAM: VITAL SIGNS: 114/61, respiratory rate of 18, heart rate 66, 94% on 3 L, 36.8 tempera ture. GENERAL: Chronically ill-appearing woman in no acute distress, sitting in a chair. HEENT: N ormocephalic, atraumatic. EOMI. NECK: Supple. Mucous membranes dry. Redness of her tongue. LUNG S: Distant breath sounds. CARDIAC: Normal S1, S2. ABDOMEN: Benign. No hepatosplenomegaly. EXTR EMITIES: Without clubbing, cyanosis, edema. NEURO: She has cogwheeling, weakness. SKIN: Warm, dr y, intact. PSYCH: Alert and oriented x3, appropriate, with normal affect. LABORATORY DATA: White count of 12.09, hemoglobin 12, hematocrit 33.6. Serum chemistries: Serum so dium 136, potassium 3.1, chloride 102, CO2 27, BUN 16, creatinine 0.5, blood sugar 156, AST of 13, AL T of 24. IMPRESSION: A 67-year-old woman with Parkinson disease, with difficulty with oropharyngeal dysphagia and recurrent aspiration pneumonia. RECOMMENDATIONS: Discussed PEG tube placement with family and patient. Patient agrees to proceed wi th PEG tube placement. 1. N.p.o. after midnight. 2. 1 g Ancef, on-call for PEG placement. 3. Hold Lovenox. 4. Replete potassium. We will follow with you. /[id number]/MODL
--- NOTE | 2017-08-15 14:23 | ASMTCMCOM ---
CM Note CM Note Notes: Today completed Palliative consult with Chaplain Gaurav with Pt. in room. Guided by suggestions of D[employer] BOX T[employer]ER on how to communicate best. Pt. able to breathe in before saying a sentence and words are much clearer. Discussed Pt's wishes today and thoughts about her course of treatment going forward. At this time, Pt. decided she would like a PEG placed to help her grow stronger and hopefully regain some ADLs. Pt. is amenable to going to SNF rehab, but does hope she can eventually return to her apartment at [facility]. Ambreen called [facility] to check-in. Spoke w/ Denae . Denae is supportive of SNF plan. Ambreen let Denae know that Pt. would like a visit from her friends at [facility] and [facility]. Denae said she would inform the friends. After consulting with son Cj , Ambreen sent [employer] referrals to [facility] and [facility]. Await reponse. Also discussed issues around Pt's wishes going forward with Cj. Completed non-triggering PASRR and faxed via [employer] to SNFs. D/c Plan: SNF ([facility] vs [facility]) and [facility]. Date Signed: 08/15/2017 02:23 PM Electronically Signed By:Veronique Tavera LCSW
--- NOTE | 2017-08-15 14:38 | HOSPPROG ---
Hospitalist Progress Note Assessment/Plan: 67-year-old female history of Parkinson's(she has underlying Multiple systems atrophy) who presented with complaints of weakness and fever. # bilateral pneumonia -likely secondary to aspiration -high risk for nosocomial organisms -continue cefepime and Flagyl #acute hypoxemic respiratory failure -due to the above -much improved # dysphagia (likely caused by progression of MSA) -pt conts to fail swallow -plan to get PEG in am with Naomi -D/W Dr Salgado #Underweight w a BMI of 18.6 # human metapneumovirus -precautions -continue supportive care # sepsis -resolved # Parkinson's is multi system atrophy -continue therapies -patient very deconditioned -dietary and calorie count -poor prognosis to return to baseline # disposition -unclear at this time -continue in-hospital supportive care -Palliative care, d/w Morris -PEG placement in am -SNF when able Subjective: Up in chair. Feels ok. No pain. Wants to get up. Objective: Vital Signs Temp Pulse Resp BP Pulse Ox 36.8 C 66 18 114/61 94 08/15/17 11:53 08/15/17 11:53 08/15/17 11:53 08/15/17 11:53 08/15/17 11:53 Laboratory Results 08/13/17 04:35 08/15/17 04:32 08/14/17 08/15/17 08/16/17 05:59 05:59 05:59 Intake Total 1808 491.3 Output Total 3 6 Balance 1805 485.3 - Physical Exam Constitutional: chronically ill appearing, uncomfortable, unkempt Eyes: PERRL, anicteric sclera, EOMI Ears, Nose, Mouth, Throat: moist mucous membranes, hearing normal, ears appear normal Cardiovascular: No JVD, No tachycardia, No edema Respiratory: no respiratory distress, reduced air movement, rhonchi Gastrointestinal: normoactive bowel sounds, No tenderness, No ascites Skin: warm, normal color, No mottled Musculoskeletal: no joint effusions, generalized weakness, No normal joint ROM Neurologic: AAOx3 Psychiatric: not anxious, not encephalopathic, thought process linear, poor memory ICD10 Worksheet Patient Problems: Problems Problem Status Onset Pneumonia Acute Contusion of right hip Acute
[2017-08-15] MEDS: MIRTAZAPINE 15 MG TAB TUBE SCH (21:23)
[2017-08-16] MEDS ORDERED: POTASSIUM Cl (KCl) 100 ML IV SCH (01:00)
[2017-08-16] MEDS: CEFEPIME HCL 1 GM in STERILE WATER INJ 11.3 ML IV SCH ×3 (01:18→17:19)
[2017-08-16] MEDS: LEVOTHYROXINE 88 MCG TAB TUBE SCH (05:06)
[2017-08-16] MEDS: ACETAMINOPHEN 650 MG/20.3 ML UDCUP TUBE PRN ×2 (05:08→14:31)
[2017-08-16] MEDS ORDERED: POTASSIUM CL 10 MEQ TAB TUBE ONE (08:26)
[2017-08-16] MEDS ORDERED: POTASSIUM CL 20 MEQ/15 ML UDCUP TUBE ONE ×3 (08:45→19:45)
--- NOTE | 2017-08-16 09:16 | PDANEPAE ---
ANE History of Present Illness aspiration pneumonia ANE Past Medical History - Pulmonary History Hx Asthma/Reactive Airway Disease: Yes Hx Oxygen in Use at Home: No Hx Sleep Apnea: No Sleep Apnea Screening Result - Last Documented: Negative - Endocrine History Hx Diabetes: No - Neurological & Psychiatric Hx Hx Neurological and Psychiatric Disorders: Yes ANE Review of Systems Review of Systems: ANE Patient History - Allergies Allergies/Adverse Reactions: azithromycin Allergy (Verified 08/09/17 16:43) entacapone Allergy (Verified 08/09/17 16:43) erythromycin base Allergy (Verified 08/09/17 16:43) nitrofurantoin macrocrystalline [From Macrodantin] Allergy (Verified 08/09/17 16 :43) Sulfa (Sulfonamide Antibiotics) Allergy (Verified 08/09/17 16:43) - Home Medications Home Medications: Carbidopa/Levodopa [Rytary ER 48.75 mg-195 mg Cap] 4 cap PO 08,12 03/04/17 [ Last Taken 03/04/17] Citalopram [CeleXA 20 MG] 30 mg PO DAILY 03/04/17 [Last Taken 03/04/17] FLUDROCORTISONE ACETATE 0.1 mg PO BID@,03/04/17 [Last Taken 03/04/17] Herbals/Supplements -Info Only 1 ea PO DAILY 03/04/17 [Last Taken 03/04/17] Mirtazapine 15 mg PO HS 03/04/17 [Last Taken 03/04/17] Sennosides/Docusate Sodium [Senna-Docusate Sodium Tablet] 1 each PO BID [Last Taken 03/04/17] Carbidopa/Levodopa [Rytary ER 48.75 mg-195 mg Cap] 3 each PO 16,20 03/06/17 [ Last Taken Unknown] Midodrine HCl 5 mg PO BID 03/06/17 [Last Taken 03/04/17] Ketoconazole 2% [Nizoral Shampoo (*)] 120 ml TP BID PRN 08/10/17 [Last Taken Unknown] Levothyroxine [Synthroid 88 mcg (*)] 88 mcg PO DAILY@06 08/10/17 [Last Taken Unknown] Omeprazole [Omeprazole] 40 mg PO DAILY 08/10/17 [Last Taken Unknown] Aspirin [Aspirin 81mg (*)] 81 mg PO DAILY 08/11/17 [Last Taken Unknown] - NPO status NPO Since - Liquids (Date): 08/15/17 NPO Since - Liquids (Time): 23:59 NPO Since - Solids (Date): 08/15/17 NPO Since - Solids (Time): 23:59 - Smoking Hx Smoking Status: Never smoked ANE Labs/Vital Signs - Labs Result Diagrams: 08/13/17 04:35 08/16/17 04:33 - Vital Signs Blood Pressure: 171/86 Heart Rate: 83 Respiratory Rate: 20 O2 Sat (%): 94 Height: 160.02 cm Weight: 47.627 kg ANE Physical Exam - Airway Neck exam: decreased ROM Mallampati Score: Class 2 Mouth exam: normal dental/mouth exam - Pulmonary Pulmonary: expiratory wheeze, inspiratory crackles - Cardiovascular Cardiovascular: regular rate and rhythym - ASA Status ASA Status: III ANE Anesthesia Plan Total IV Anesthesia: Yes
[2017-08-16] MEDS ORDERED: PROPOFOL/EMULSION 500 MG/50 ML BOTTLE IV ONE (09:18)
[2017-08-16] MEDS ORDERED: NALOXONE HCL 0.4 MG/ML INJ IVP PRN (09:54)
--- NOTE | 2017-08-16 09:56 | GIREPORT ---
[facility] - Endoscopy Department Patient Name: Tayler Gray Procedure Date: 08/16/2017 9:09 AM Patient Type: Inpatient Attending MD/ ER Physician: Nikolai Salgado MD Procedure: Upper GI endoscopy Indications: Dysphagia, Apiration pneumonia and Parkisosn. Providers: Nikolai Salgado MD Medicines: Sedation Required Anesthesia Staff Assistance Complications: No immediate complications. Description of Procedure: After obtaining informed consent, the endoscope was passed under direct vision. Throughout the procedure, the patient's blood pressure, pulse, and oxygen saturations were monitored continuously. The Endoscope was intro duced through the mouth, and advanced to the second part of duodenum. The [facility] er GI endoscopy was accomplished without difficulty. The patient tolerated th e procedure well. Findings: The examined esophagus was normal. A medium-sized hiatal hernia was present. The entire examined stomach was normal. Placement of an externally marine vable PEG with no T-fasteners was successfully completed. The external bumper was at the 1.5 cm marking on the tube. The examined duodenum was normal. Estimated Blood Loss: Estimated blood loss: none. Post Op Diagnosis: - Normal esophagus. - Medium-sized hiatal hernia. - Normal stomach. - Normal examined duodenum. - An externally removable PEG placement was successfully completed. - No specimens collected. Recommendation: - At 2 PM if normal BS and benign abdomen may start TF. - Refer to a dietitian today, to calculate caloric and free water requirments. - Thank you for allowing me to participate in the care of your patient. Attending Participation: I personally performed the entire procedure. Nikolai Salgado MD Nikolai Salgado MD 08/16/2017 9:56:09 AM This report has been signed electronicallyStevbruno Salgado MD Number of Addenda: 0 Note Initiated On: 08/16/2017 9:09 AM [email or web address]
--- NOTE | 2017-08-16 10:01 | POSTANESTH ---
Post Anesthetic Evaluation Cardiovascular Status: Normal, Stable Respiratory Status: Normal, Stable Level of Consciousness/Mental Status: Can Participate in Eval Pain Control: Adequate, Prn Tx Ordered Nausea/Vomiting Control: Adequate, Prn Tx Ordered Complications Possibly Related to Anesthesia: None Noted
--- NOTE | 2017-08-16 10:39 | HOSPPROG ---
Hospitalist Progress Note Assessment/Plan: 67-year-old female history of Parkinson's(she has underlying Multiple systems atrophy) who presented with complaints of weakness and fever. # bilateral pneumonia -likely secondary to aspiration -high risk for nosocomial organisms -continue cefepime and Flagyl #acute hypoxemic respiratory failure -due to the above -much improved # dysphagia (likely caused by progression of MSA) -pt conts to fail swallow -PEG this am with Naomi -D/W Dr Salgado #Underweight w a BMI of 18.6 # human metapneumovirus -precautions -continue supportive care # sepsis -resolved # Parkinson's is multi system atrophy -continue therapies -patient very deconditioned -dietary and calorie count -poor prognosis to return to baseline # disposition -plan for SNF DC -continue in-hospital supportive care -monitor PEG then DC when safe Subjective: Awaiting PEG placement. Objective: Vital Signs Temp Pulse Resp BP Pulse Ox 36.4 C 83 27 H 137/69 H 92 08/16/17 10:25 08/16/17 09:16 08/16/17 10:31 08/16/17 10:31 08/16/17 10:31 Laboratory Results 08/13/17 04:35 08/16/17 04:33 08/15/17 08/16/17 08/17/17 05:59 05:59 05:59 Intake Total 491.3 400 461.3 Output Total 6 0 Balance 485.3 400 461.3 - Physical Exam Constitutional: chronically ill appearing, cachectic Eyes: PERRL, anicteric sclera Ears, Nose, Mouth, Throat: moist mucous membranes, hearing normal Cardiovascular: No JVD, No edema Respiratory: reduced air movement, rhonchi Gastrointestinal: tenderness, No ascites, No guarding Skin: warm, normal color, No mottled Musculoskeletal: no joint effusions, generalized weakness, No normal joint ROM Neurologic: AAOx3 Psychiatric: not anxious, not encephalopathic, poor memory ICD10 Worksheet Patient Problems: Problems Problem Status Onset Contusion of right hip Acute Pneumonia Acute
[2017-08-16] MEDS: CARBIDOPA/LEVODOPA 25 MG/100 MG TAB TUBE SCH ×4 (11:33→20:44)
[2017-08-16] MEDS: CITALOPRAM 20 MG TAB TUBE SCH (14:32)
[2017-08-16] MEDS: ASPIRIN 81 MG CHEWABLE TAB TUBE SCH (14:33)
[2017-08-16] MEDS: FLUDROCORTISONE ACETATE 0.1 MG TAB TUBE SCH ×2 (14:33)
--- NOTE | 2017-08-16 14:34 | ASMTCMCOM ---
CM Note CM Note Notes: Pt. officially approved to go to [facility] or [facility]. Ambreen called son Cj to discuss choices. Cj wondered why Pt. couldn't just go to [facility] so that she does not have to change her surroundings. Discussed issues related to Pt's deconditioning and need for rehab so that Pt. can one day have the potential to more safely return home to [place]. Explained differences between level of care at [place] vs SNF. Suggested to Cj that he call [facility] himself to hear from their staff about concerns. Cj did so and called Ambreen back. Stated he understood that Pt. might benefit from rehab and was grateful for the help. Would like Ambreen to send Pt. to [facility] as his first choice. Per Kev, [facility] has confirmed acceptance over the phone. Sent updates and sent requested PEG tube feed specifications via [employer]. [facility] can receive Pt. this Saturday or Saturday if Pt. is ready. D/c plan: [facility] when ready Date Signed: 08/16/2017 02:33 PM Electronically Signed By:Veronique Tavera LCSW
[2017-08-16] MEDS: LANSOPRAZOLE SUSP 30MG/10ML UDSYR (Adult) TUBE SCH (14:35)
[2017-08-16] MEDS: SENNOSIDES 17.6 MG/10 ML UDL - IF LIQUID ORDERED TUBE SCH ×2 (14:35→20:46)
[2017-08-16] MEDS: MIDODRINE HCL 5 MG TAB TUBE SCH ×2 (17:00→20:45)
[2017-08-16] MEDS ORDERED: POTASSIUM CL 10 MEQ TAB PO ONE (19:30)
[2017-08-16] MEDS: MIRTAZAPINE 15 MG TAB TUBE SCH (20:45)
[2017-08-17] MEDS: CEFEPIME HCL 1 GM in STERILE WATER INJ 11.3 ML IV SCH ×2 (01:22→09:48)
[2017-08-17] MEDS: LEVOTHYROXINE 88 MCG TAB TUBE SCH (05:16)
[2017-08-17] MEDS ORDERED: POTASSIUM CL 10 MEQ TAB PO ONE (08:44)
[2017-08-17] MEDS ORDERED: POTASSIUM CL 20 MEQ/15 ML UDCUP TUBE ONE (09:00)
[2017-08-17] MEDS: ENOXAPARIN 40 MG/0.4 ML SYR SC SCH (09:38)
[2017-08-17] MEDS: MIDODRINE HCL 5 MG TAB TUBE SCH (09:38)
[2017-08-17] MEDS: LANSOPRAZOLE SUSP 30MG/10ML UDSYR (Adult) TUBE SCH (09:38)
[2017-08-17] MEDS: SENNOSIDES 17.6 MG/10 ML UDL - IF LIQUID ORDERED TUBE SCH (09:38)
[2017-08-17] MEDS: CITALOPRAM 20 MG TAB TUBE SCH (09:39)
[2017-08-17] MEDS: CARBIDOPA/LEVODOPA 25 MG/100 MG TAB TUBE SCH ×3 (09:39→16:09)
[2017-08-17] MEDS: ASPIRIN 81 MG CHEWABLE TAB TUBE SCH (09:40)
[2017-08-17] MEDS: FLUDROCORTISONE ACETATE 0.1 MG TAB TUBE SCH ×2 (09:40→12:35)
[2017-08-17 12:08] VITALS: BP 100/55
--- NOTE | 2017-08-17 15:15 | PDIAF ---
- Diagnosis Diagnosis: aspiration pneumonia, multi systems atrophy Code Status: Do Not Resuscitate - Medication Management Discharge Medications: Medications to Continue on Transfer Carbidopa/Levodopa [Rytary ER 48.75 mg-195 mg Cap] 4 cap PO 08,12 03/04/17 [ Last Taken 03/04/17] Citalopram [CeleXA 20 MG] 30 mg PO DAILY 03/04/17 [Last Taken 03/04/17] FLUDROCORTISONE ACETATE 0.1 mg PO BID@,13 03/04/17 [Last Taken 03/04/17] Herbals/Supplements -Info Only 1 ea PO DAILY 03/04/17 [Last Taken 03/04/17] Mirtazapine 15 mg PO HS 03/04/17 [Last Taken 03/04/17] Sennosides/Docusate Sodium [Senna-Docusate Sodium Tablet] 1 each PO BID [Last Taken 03/04/17] Acetaminophen [Tylenol ES 500 mg (*)] 1,000 mg PO TID tab 03/06/17 [Last Taken Unknown] Carbidopa/Levodopa [Rytary ER 48.75 mg-195 mg Cap] 3 each PO 16,20 03/06/17 [ Last Taken Unknown] Midodrine HCl 5 mg PO BID 03/06/17 [Last Taken 03/04/17] Ketoconazole 2% [Nizoral Shampoo (*)] 120 ml TP BID PRN 08/10/17 [Last Taken Unknown] Levothyroxine [Synthroid 88 mcg (*)] 88 mcg PO DAILY@06 08/10/17 [Last Taken Unknown] Omeprazole 40 mg PO DAILY 08/10/17 [Last Taken Unknown] Aspirin [Aspirin 81mg (*)] 81 mg PO DAILY 08/11/17 [Last Taken Unknown] Discharge Medications: Refer to the Discharge Home Medication list for PRN reason. - Orders Services needed: Registered Nurse, Certified Hearing Healthcare Practitioner, Physical Therapy, Occupational Therapy, Speech Language Pathologist Isolation Type: Contact Isolation, Droplet Isolation Diet Recommendation: no restrictions on diet Diet Texture: Dysphagia 2 - Mechanically Altered - Chopped, Ground, Dysphagia 1 - Pureed, Thin Liquids, Meds Whole in Puree - Labs/Radiology BMP Date: 08/20/17 - Follow Up Care Current Providers and Referrals: Joyce,Dara [Non Staff and Non MD] - As per Instructions
--- NOTE | 2017-08-17 15:18 | PDIAF ---
- Diagnosis Diagnosis: aspiration pneumonia, multi systems atrophy Code Status: Do Not Resuscitate - Medication Management Discharge Medications: Medications to Continue on Transfer Carbidopa/Levodopa [Rytary ER 48.75 mg-195 mg Cap] 4 cap PO 08,12 03/04/17 [ Last Taken 03/04/17] Citalopram [CeleXA 20 MG] 30 mg PO DAILY 03/04/17 [Last Taken 03/04/17] FLUDROCORTISONE ACETATE 0.1 mg PO BID@,13 03/04/17 [Last Taken 03/04/17] Herbals/Supplements -Info Only 1 ea PO DAILY 03/04/17 [Last Taken 03/04/17] Mirtazapine 15 mg PO HS 03/04/17 [Last Taken 03/04/17] Sennosides/Docusate Sodium [Senna-Docusate Sodium Tablet] 1 each PO BID [Last Taken 03/04/17] Acetaminophen [Tylenol ES 500 mg (*)] 1,000 mg PO TID tab 03/06/17 [Last Taken Unknown] Carbidopa/Levodopa [Rytary ER 48.75 mg-195 mg Cap] 3 each PO 16,20 03/06/17 [ Last Taken Unknown] Midodrine HCl 5 mg PO BID 03/06/17 [Last Taken 03/04/17] Ketoconazole 2% [Nizoral Shampoo (*)] 120 ml TP BID PRN 08/10/17 [Last Taken Unknown] Levothyroxine [Synthroid 88 mcg (*)] 88 mcg PO DAILY@06 08/10/17 [Last Taken Unknown] Omeprazole 40 mg PO DAILY 08/10/17 [Last Taken Unknown] Aspirin [Aspirin 81mg (*)] 81 mg PO DAILY 08/11/17 [Last Taken Unknown] Discharge Medications: Refer to the Discharge Home Medication list for PRN reason. - Orders Services needed: Registered Nurse, Certified Live Hanger, Physical Therapy, Occupational Therapy, Speech Language Pathologist Isolation Type: Contact Isolation, Droplet Isolation Oxygen: 3L Diet Recommendation: no restrictions on diet Diet Texture: Dysphagia 2 - Mechanically Altered - Chopped, Ground, Dysphagia 1 - Pureed, Thin Liquids, Meds Whole in Puree - Labs/Radiology BMP Date: 08/20/17 - Follow Up Care Current Providers and Referrals: Dara Joyce [Non Staff and Non MD] - As per Instructions
--- NOTE | 2017-08-17 16:23 | SOAPPROG ---
SOAP Progress Note Assessment/Plan: Assessment:Plan: 1) PEG - working well for feeds and meds, loosened bumper by 3/4 cm, asked them to consider loosening again in 2-3 days 2) dispo - to SNF today 08/17/17 16:21 Subjective: cc- feeding diff misc s/p PEG EG site clean and dry, no pain, working well Objective: Vital Signs Temp Pulse Resp BP Pulse Ox 36.9 C 73 16 100/55 L 93 08/17/17 11:57 08/17/17 16:00 08/17/17 16:00 08/17/17 11:57 08/17/17 16:00 Laboratory Results 08/13/17 04:35 08/17/17 04:13 08/16/17 08/17/17 08/18/17 05:59 05:59 05:59 Intake Total 400 972.6 300 Output Total 0 Balance 400 972.6 300 alert CTA S1S +bs, soft, nt ICD10 Worksheet Patient Problems: Problems Problem Status Onset Pneumonia Acute Contusion of right hip Acute
--- NOTE | 2017-08-17 16:26 | ASMTLACE ---
LACE Length of stay for Answers: 4-6 days current admission Acuity / Level of Answers: Yes Care: Did the patient have an inpatient admission? Comorbidities - select Answers: Other Notes: Parkinson's disease all that apply # of Emergency department Answers: 1-2 visits in the last 6 months Score: 9 Date Signed: 08/17/2017 03:52 PM Electronically Signed By:Virginia Carney RN
--- NOTE | 2017-08-17 22:01 | GDS ---
[f rep st] DISCHARGE SUMMARY DIAGNOSES: 1. Aspiration pneumonia. 2. Acute hypoxic respiratory failure. 3. Dysphagia. 4. Underweight with a body mass index of 18.6. 5. Human metapneumovirus. 6. Sepsis which has resolved. 7. Multi-system atrophy. CONSULTATIONS: Gastroenterology. PROCEDURES: PEG placement by Dr. Salgado on 08/16/2017 given her ongoing dysphagia, concern for aspi ration. HOSPITAL COURSE: 1. A 67-year-old female admitted with fever and lethargy. Chest x-ray showed bilateral alveolar inf iltrates concerning for pneumonia. Suspect that this is due to both aspiration and potentially also human metapneumovirus. She has received a course of cefepime as well as Flagyl 7 days, today is day 7. We will stop antibiotics at this point. She has been treated supportively for human metapneumovi rd. She continues to be hypoxic and is needing supplemental oxygen on the day of discharge. Her ox ygen requirement at 3 L has been stable. 2. Because of her dysphagia as well as aspiration, a PEG tube was placed. Tube feeding has begun to day. She is tolerating tube feeds with no residuals. She has been switched to bolus tube feeding to day. I have recommended checking a basic metabolic panel, about 3 days after discharge to ensure francisca t electrolytes and sodium are normal. 3. She has multi-system atrophy. Unfortunately, this will likely progress relatively rapidly. She is quite deconditioned on discharge. She will require SNF care. 4. She has significant autonomic dysfunction caused by her multi-system atrophy. She takes Midodrin e as well as Florinef for this. Recommend continuing these. FOLLOWUP: 1. She should follow up with her primary care physician, Dr. Joyce. 2. She should follow up with Dr. Kiara Montanez, her outpatient neurologist, for ongoing care for her multi-system atrophy. BILLING: I spent more than 30 minutes on the day of discharge coordinating care. /[id number]
--- NOTE | 2017-08-21 13:41 | ASDISCHSUM ---
Discharge Information Plan Status:SNF Medically Cleared to Leave: Discharge Date:08/17/2017 04:52 PM D/C Disposition:Senior Living Facility ADT D/C Disposition:Senior Living Facility Projected Discharge Date:08/17/2017 11:00 AM Transportation at D/C:Wheelchair Van Discharge Delay Reason: Follow-Up Date:08/17/2017 11:00 AM Discharge Slot: Final Diagnosis: Placement Information Referral Type:*Group Home/SNF Referral ID:[id number] Provider Name:[facility] Address 1:[address] [place] [address] Address 2: City:[place] Selection Factors: State:[place] Patient Contact Information Contact Name:HEIDE Relationship:Son Address: Work Phone: City: [facility] Phone: [facility]/Zip Code: Email: Financial Information Financial Class:Medicare Primary Plan Desc:MEDICARE INPATIENT Primary Plan Number:[id number] Secondary Plan Desc:STEVEN SÁNCHEZ PPO Secondary Plan Number:[id number] Assessment Information [facility] CM Progress Note CM Note CM Note Notes: Pt admitted with pneumonia, likely aspiration. Pt has a hx of parkinsons, dysphagia, multisystem atrophy & falls. Normally resides at [facility]. Called [place] ([phone]); confirmed pt is an assisted living resident. Pt has had [facility] in the past & is current with [facility]. Pt's sons Ray ([phone]) & Franklyn ([phone]) live locally. PT ordered; awaiting eval. OT/ST recommending SNF. CM will follow. Date Signed: 08/10/2017 12:02 PM Electronically Signed By:Dahiana Lezama RN [facility] Progress Note CM Note CM Note Notes: CM spoke with hospitalist and Wes Pugh placed today, will monitor while treating pneumonia Patient is unable to speak and swallow. Plan tomorrow to discuss patient status with son, Lefty informed son Franklyn there will likely be a big conversation to have around core status, PEG tube and feeding, and Palliative vs. Hospice and reports one of pt's sons will come tomorrow (Franklyn or Ray). Discharge TBD. CM to follow. Current D/C plan: TBD. Date Signed: 08/11/2017 05:08 PM Electronically Signed By:Stephanie Colin LACE LACLinda Length of stay for Answers: 4-6 days current admission Acuity / Level of Answers: Yes Care: Did the patient have an inpatient admission? Comorbidities - select Answers: Other Notes: Parkinson's disease all that apply # of Emergency department Answers: 1-2 visits in the last 6 months Score: 9 Date Signed: 08/17/2017 03:52 PM Electronically Signed By:Virginia Carney RN [facility] CM Progress Note CM Note CM Note Notes: Left a message for evans Gonzalez regarding patient and the need to meet to determine core status and future planning for palliative vs hospice. CM will follow. Date Signed: 08/12/2017 04:08 PM Electronically Signed By:Shalonda Merchant LCSW [facility] Progress Note CM Note CM Note Notes: Today SWer retrieved voicemail message from Pt's son Cj Newell calling back about a care conference/palliative consult for Pt. Let Olman De La O in Palliative know. Olman left a msg for Cj today. Viri Vickers RN from [facility] came to speak w/ SWer about Pt's case. Viri states that Pt's PCP is Dr. Yodit Joyce. Pt's Parkinson's neurologist is Dr. Shazia Montanez at [place] . Also, per Viri Pt. is open with [facility] Palliative care at her home at [facility]. As was previously mentioned by colleagues, Pt. was also open with [facility] in the past. Olman De La O is managing getting an appointment with sons to discuss next medical course for Pt. To discuss with Pt. and family whether Pt. would choose a PEG and medical intervention or a more palliative/hospice approach. Viri Vickers RN suggests going very slowly when ascertaining Pt's current wishes to ensure Pt. can communicate effectively. Team needs to clarify Pt's most recent MOST. Viri Vickers looking to find MDPOA form in Pt's outpatient record. SW to follow. Date Signed: 08/14/2017 03:36 PM Electronically Signed By:Veronique Tavera LCSW [facility] CM Progress Note CM Note CM Note Notes: Today completed Palliative consult with Chaplain Gaurav with Pt. in room. Guided by suggestions of [employer] on how to communicate best. Pt. able to breathe in before saying a sentence and words are much clearer. Discussed Pt's wishes today and thoughts about her course of treatment going forward. At this time, Pt. decided she would like a PEG placed to help her grow stronger and hopefully regain some ADLs. Pt. is amenable to going to SNF rehab, but does hope she can eventually return to her apartment at [facility]. Ambreen called [place] to check-in. Spoke w/ Denae . Denae is supportive of SNF plan. Ambreen let Denae know that Pt. would like a visit from her friends at [place] - Aisha and Anh. Denae said she would inform the friends. After consulting with evans Corona , Ambreen sent [employer] referrals to [facility] and [facility]. Await reponse. Also discussed issues around Pt's wishes going forward with Cj. Completed non-triggering PASRR and faxed via [employer] to SNFs. D/c Plan: SNF ([facility] vs [facility]) and [facility] Palliative Care. Date Signed: 08/15/2017 02:23 PM Electronically Signed By:Veronique Tavera LCSW [facility] CM Progress Note CM Note CM Note Notes: Pt. officially approved to go to [facility] or [facility]. Ambreen called evans Cj to discuss choices. Cj wondered why Pt. couldn't just go to [facility] so that she does not have to change her surroundings. Discussed issues related to Pt's deconditioning and need for rehab so that Pt. can one day have the potential to more safely return home to [place]. Explained differences between level of care at [place] vs SNF. Suggested to Cj that he call [facility] himself to hear from their staff about concerns. Cj did so and called Ambreen back. Stated he understood that Pt. might benefit from rehab and was grateful for the help. Would like Ambreen to send Pt. to [facility] as his first choice. Per Kev, [facility] has confirmed acceptance over the phone. Sent updates and sent requested PEG tube feed specifications via [employer]. [facility] can receive Pt. this Saturday or Saturday if Pt. is ready. D/c plan: [facility] when ready Date Signed: 08/16/2017 02:33 PM Electronically Signed By:Veronique Tavera LCSW Case Management Discharge Plan Note Case Management Discharge Discharge Order Complete? Answers: Yes Patient to Obtain Answers: Other Notes: [facility] Medications Transportation Arranged Answers: Other Notes: [facility] Transport will Pick (Date 08/17/2017 04:00 PM & Time) Faxed Final Orders Answers: Yes Agency/Facility Transfer Answers: Yes Report Printed & Faxed to Receiving Agency Family Notified Answers: Yes Discharge Comments Notes: D/carolyn HUIZAR, final orders faxed. Lee Ann at notified, as well as Paula at [facility]. left message for evans Corona. Date Signed: 08/17/2017 03:52 PM Electronically Signed By:Virginia Carney RN Intervention Information Intervention Type:*IM-Signed Date of Service:08/16/2017 03:20 PM Patient Type:Inpatient Staff Member:Sana Escamilla Hours: Discipline: Severity: Comment:
== END 2017-08-17 16:52 | DRG 871 ==
LOC: F3E 18:40
PROVIDERS: ADMIT Internal Medicine; ATTEND Internal Medicine
PROC: 0D1 Gastrointestinal System, Bypass (ICD-10-PCS; principal; 2017-08-16 09:15)
DX: A41.89 Other specified sepsis (principal); J69.0 Pneumonitis due to inhalation of food and vomit; Z68.1 Body mass index [BMI] 19.9 or less, adult; G90.3 Multi-system degeneration of the autonomic nervous system; B97.81 Human metapneumovirus as the cause of diseases classified elsewhere; R13.10 Dysphagia, unspecified; R63.6 Underweight; R09.02 Hypoxemia; G20 Parkinson's disease; E03.9 Hypothyroidism, unspecified
CPT/HCPCS: 92523-GN; 92526-GN; 92610-GN; 92611-GN; 97112-GP; 97116-GP; 97163-GP; 97166-GO; 97530-GO; 97530-GP; 97535-GO; B4087; G8978-GP-CL; G8979-GP-CJ; G8987-GO-CK; G8988-GO-CJ; G8996-GN-CJ; G8996-GN-CK; G8997-GN-CI; G8997-GN-CJ; G8998-GN-CJ; G8999-GN-CL; G9158-GN-CL; G9186-GN-CL; J0690; J0692; J1650; J1956; J2704; J3480